=== PATIENT | male | born 1950 | race American Indian/Alaskan Native ===

== ENCOUNTER 2024-05-05 08:48 | Emergency (ER) | payer MEDICARE, BC, SELFPAY ==
[2024-05-05] VITALS (8 sets, daily range): BP systolic 96–113; BP diastolic 56–72; PULSE 81–103; RESP 17–20; TEMP 36.3–36.7; O2SAT 95–99; BMI 27.1
--- NOTE | 2024-05-05 09:03 | XR_ITS ---
Examination: AP chest single view Technique one AP portable sitting chest single view Exam date and time: May 05, 2024 at 0917 hours Comparison March 03, 2016 INDICATIONS: Shortness of breath beginning 10 days ago. FINDINGS: Left base pneumonia, obscuring detail hemidiaphragm Normal heart size Lordotic chest Moderate osteopenia IMPRESSION: Left base pneumonia
--- NOTE | 2024-05-05 09:03 | XR_ITS ---
Examination: Ultrasound-guided paracentesis Abdominal sonogram limited Date and time of exam: May 05, 2024 1415 hours INDICATIONS: Cirrhosis, ascites increasing abdominal distention this week Informed consent provided. A timeout was completed verifying correct patient, procedure, site, positioning, and special adequate movement if applicable. Technique: Multiple sonographic images of the abdomen have been obtained. Appropriate area for paracentesis was marked. Local anesthesia is obtained with 1% lidocaine. Yueh catheter is successfully introduced. Findings: Abdominal sonographic images demonstrate sufficient ascitic fluid for paracentesis. After placing the Yueh catheter, 11,850 cc of fluid were successfully removed. During and after completion of the procedure the patient appear in satisfactory and stable condition with no complications observed. Estimated blood loss 0 cc Impression: Abdominal ascites Successful ultrasound-guided paracentesis as described above
--- NOTE | 2024-05-05 09:04 | PD.EDRME ---
Rapid Medical Screening Exam RME Arrival date/time: Chief Complaint: Shortness of Breath/Dyspnea Time Seen by Provider: 05/05/24 09:50 Vital signs: Vital Signs Temperature 97.4 F 05/05/24 08:59 Pulse Rate 103 H 05/05/24 08:59 Respiratory Rate 20 05/05/24 08:59 Blood Pressure 111/70 05/05/24 08:59 Pulse Oximetry (%) 95 05/05/24 08:59 Oxygen Delivery Method Room Air 05/05/24 08:59
--- NOTE | 2024-05-05 09:35 | PC.NURSE ---
Pt. here from home to room 9, pt. here stating that he has been SOB X 3 weeks and has a distended abdomen with a umbilical hernia, pt. has pitting edema +2 to lower extremities bilateral. Pt. states he has been on Ozempic for over a year and can't eat anything, pt. states he has type 2 diabetes. Pt. states he ambulates with a cane. Pt. states it is the SOB that brought him in to be checked. Pt. states he drinks a lot of water. No s/s of distress at this time.
--- NOTE | 2024-05-05 09:48 | PC.NURSE ---
Pt. states he has never been tapped to remove the fluid from his abdomen.
--- NOTE | 2024-05-05 09:50 | XR_ITS ---
Examination: CT abdomen with intravenous contrast CT pelvis with intravenous contrast 2-D coronal reconstructions 2-D sagittal reconstructions Date and time of exam:May 05, 2024 at 1204 hours INDICATIONS: Generalized abdominal pain and distention today. CTDI: vol (mGy) 8.83 DLP: (mGycm) 602 Technique: Multiple axial sections of the abdomen and pelvis have been obtained. 64 slice high-resolution scanner used. 3 mm axial sections have been obtained, post intravenous injection 60 cc [id number] 2-D sagittal, coronal reconstructions obtained. Low dose protocols were performed. One or more of the following dose reduction techniques were used; automated exposure control, adjustment of the mA and/or KV according to patient size, use of iterative reconstruction technique. Findings: Pneumonia right base with small right pleural effusion Pneumonia left base Cirrhosis, liver nodular in contour with massive ascites Gallstones Distended gallbladder Splenomegaly Common hepatic duct at least 8 mm No pancreatic mass Normal adrenal glands No renal or ureteral calculi Normal appendix No bowel obstruction 3 cm fluid containing umbilical hernia Colonic diverticulosis Minimal thickening of the urinary bladder wall Transverse prostate dimension 3.8 cm Severe osteopenia Chronic osteoporotic compression L5 L2 T12, retropulsion of the compressed T12 vertebral body at least 4 mm IMPRESSION: Bibasilar pneumonia Cirrhosis Massive ascites Cholelithiasis, distended gallbladder with biliary tract dilatation, recommend hepatobiliary sonography follow-up 3 cm fluid containing umbilical hernia Cystitis pattern Severe osteopenia, significant compression T12 vertebral body with retropulsion of this vertebral body at least 4 mm, consider elective MRI lumbar spine follow-up to assess for compression of the thoracic cord at the T12 level
--- NOTE | 2024-05-05 09:55 | EDNOTE_ITS ---
ED General RME/HPI General Chief complaint: Shortness of Breath/Dyspnea Stated complaint: SOB; SWOLLEN BELLY X 1 WK; REDUCED LIVER FUNCT Time Seen by Provider: 05/05/24 09:50 Arrival date/time: 05/05/24 08:48 RME / HPI RME / HPI narrative: [facility] complaint: 05/05/24 08:48 shortness of breath and abdominal distention x3 weeks - history of alcohol abuse, quit 1 year ago. HPI: Patient is a 74-year-old male presents emergency department complaints of shortness of breath and abdominal distention patient reports abdominal distention is ongoing for the last 3 weeks patient does report history of alcohol abuse last used 1 year ago. 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 They study in [place] Family history: Denies SCD, stroke or cancers. Related Data Allergies Allergy/AdvReac Type Severity Reaction Status Date / Time No Known Allergies Allergy Verified 05/05/24 08:50 Review of Systems Review of Systems Narrative Review of Systems: GENERAL: Denies fevers/chills or diaphoresis. HEENT: Denies headache or visual/hearing changes. Denies nasal discharge. NEURO: Denies unusual weakness or difficulty speaking. CARDIO: Denies chest pain or palpitations. PULM: Denies SOB, coughing, or wheezing. GI: Denies abdominal pain, N/V/C/D. Reports having BMs URO: Denies burning/itching/pain/urinary changes. PILATES COORDINATOR: Denies menstrual changes, hot flashes. MSK/EXT/SKIN: Denies joint/skeletal/muscle pain, issues/changes in upper or lower extremities, itchiness, or superficial pain. PSYCH: Cooperative, pleasant mood & affect. The rest of the review of systems is otherwise negative. Course Quality Measures none Orders Category Date Time Status CT Screening NOW Care 05/05/24 09:50 Active Electronics Installer NOW Care 05/05/24 09:03 Active EKG (ED ONLY) *Do not use* NOW Care 05/05/24 09:03 Completed Oral Hydration Q1HR Care 05/05/24 14:[address] abdomen pelvis w con Stat Exams 05/05/24 09:50 Completed EKG (ED Only) Stat Exams 05/05/24 09:03 Ordered US paracentesis abd w/image Stat Exams 05/05/24 09:03 Completed XR chest 1V portable Stat Exams 05/05/24 09:03 Completed Albumin, Peritoneal Fluid Routine Lab 05/05/24 16:31 Results Body Fld Cult w [place] & Gram St Routine Lab 05/05/24 16:31 Received CBC Stat Lab 05/05/24 09:46 Completed Comprehensive Metabolic Panel Stat Lab 05/05/24 09:46 Completed Glucose,Peritoneal Fluid Routine Lab 05/05/24 16:31 Results Hepatitis Acute Panel Stat Lab 05/05/24 09:46 Received LDH,Peritoneal Fluid Routine Lab 05/05/24 16:31 Results Lipase Stat Lab 05/05/24 09:46 Completed Mag [Magnesium] Stat Lab 05/05/24 09:46 Completed Partial Thromboplastin Time Stat Lab 05/05/24 09:46 Completed Path Review Blood Smear Stat Lab 05/05/24 09:46 Completed Peritoneal Cell Cnt/Diff Routine Lab 05/05/24 16:31 Results Protein Total,Peritoneal Fluid Routine Lab 05/05/24 16:31 Results Prothrombin Time with INR Stat Lab 05/05/24 09:46 Completed Troponin I Stat Lab 05/05/24 09:46 Completed Albumin Human 25% Ivpb [Albuminar-25 Ivpb] Med 05/05/24 14:33 Discontinued 12.5 gm in 50 ml IV X1 Albumin Human 25% Ivpb [Albuminar-25 Ivpb] Med 05/05/24 14:36 Discontinued 25 gm in 100 ml IV X1 Albumin Human 25% Ivpb [Albuminar-25 Ivpb] Med 05/05/24 17:44 Active 25 gm in 100 ml IV X1 Lidocaine 1% Pf 30 ml [Xylocaine 1% Pf 30 ml] Med 05/05/24 12:36 Discontinued 30 ml .ROUTE .STK-MED ONE Phytonadione Inj [Vitamin K Inj] Med 05/05/24 14:36 Discontinued 1 mg SC X1 ONE Sodium Chloride 0.9% 500 ml [Ns] 500 ml Med 05/05/24 17:43 Active IV 999 mls/hr cefTRIAXone/D5w 1gm IV premix [Rocephin/D5w 1gm IV Med 05/05/24 14:32 Discontinued premix] 50 ml IV X1 Reevaluation(s) Reevaluation #1: 3:30 PM : s/p paracentesis , per patient he had 11 bottles of fluid taken out. Pending official para report. Abdomen much soft and SOB has now resolved. Will send peritoneal fluid for analysis. Vital Signs Vital signs: Vital Signs Temperature 97.4 F 05/05/24 08:59 Pulse Rate 103 H 05/05/24 08:59 Respiratory Rate 20 05/05/24 08:59 Blood Pressure 111/70 05/05/24 08:59 Pulse Oximetry (%) 95 05/05/24 08:59 Oxygen Delivery Method Room Air 05/05/24 08:59 [facility] Patient data External records reviewed:: [facility] previous records Clinical information provided by:: patient Social determinants that could affect healthcare access:: none Patient has the following chronic illnesses:: Alochol use d/o T2 DM How is presenting disease/condition affected by chronic disease/condition?: c aused by Evaluation data The following diagnostics were reviewed and interpreted by me:: lab results, radiology exam(s) and EKG tracing(s) Lab and/or radiology exams considered but not ordered:: arterial flow liver CT Interpretation Summary: SOB likely due to severe ascites in the setting of cirrhosis Patient is s/p paracentesis with >10 bottles out. SOB has resolved. Medications Medications considered but not ordered:: Dilaudid for pain Medication administrations:: Medication Administration History Sodium Chloride (Ns) 500 mls @ 999 mls/hr IV .Q31M ONE Stop: 05/05/24 18:13 Albumin Human (Albuminar-25 Ivpb) 25 gm in 100 mls @ 100 mls/hr IV X1 ONE Stop: 05/05/24 18:43 Discontinued Medications Ceftriaxone Sodium/Dextrose (Rocephin/D5w 1gm Iv Premix) 50 mls @ 100 mls/hr IV X1 ONE Stop: 05/05/24 15:01 Last Infusion: 05/05/24 16:45 Dose: Infused Documented By: Admin: 05/05/24 16:15 Dose: 100 mls/hr Documented By: ED Albumin Human (Albuminar-25 Ivpb) 12.5 gm in 50 mls @ 50 mls/hr IV X1 ONE Stop: 05/05/24 14:35 Last Admin: 05/05/24 16:30 Dose: Not Given Documented By: ED Non-Admin Reason: Duplicate Medication on eMAR Albumin Human (Albuminar-25 Ivpb) 25 gm in 100 mls @ 100 mls/hr IV X1 ONE Stop: 05/05/24 15:35 Last Admin: 05/05/24 17:22 Dose: 100 mls/hr Documented By: ED Lidocaine HCl (Lidocaine Inj Pf 1% 30 Ml Vial) Confirm Administered Dose 30 ml .ROUTE .STK-MED ONE Stop: 05/05/24 12:37 Last Admin: 05/05/24 16:12 Dose: Not Given Documented By: ED Non-Admin Reason: Held for Procedure Phytonadione (Phytonadione Inj 1 Mg/0.5 Ml Syr) 1 mg SC X1 ONE Stop: 05/05/24 14:37 Last Admin: 05/05/24 16:22 Dose: 1 mg Documented By: ED Co-signed By: YANETH continue Consultations Consultation(s) initiated? (list below): No Consultation #1 (Physician, Specialty, Details): None Diagnosis Differential Diagnosis ED Complaint MDM: Diverticulitis, SBO Most likely diagnosis given after review of the tests above:: SOB likely due to severe ascites in the setting of cirrhosis Patient is s/p paracentesis with >10 bottles out. SOB has resolved. Admission Indicated Admission indicated?: not indicated Explain why admission is indicated or not indicated:: Can follow up outpatient with GI/hepatology for further monitoring and evaluation Pt has quit alcohol. Last drink was >1 year ago. Admission Request Was there a request for admission?: No Disposition Plan Disposition Plan: Discharge Discharge Attestation Discharge Attestation: The patient and all family members were given an opportunity to ask questions and understood the discharge instructions. Discharge instructions specifically effects, indications for sooner follow up or return to the emergency department, and the expected course of current diagnosis. Patient condition: Stable Medical Decision Making MDM Narrative MDM Narrative: Patient is a 74 yo M with known history of alcohol use disorder. No history of diagnosed liver cirrhosis. Presented with SOB 2/2 abdominal distension. Found to have ascites, s/p paracentesis. Pending fluid analysis results before discharge. Diagnosis: CT abdo showed liver cirrhosis and severe ascites. SOB likely due to severe ascites in the setting of cirrhosis. Patient is s/p paracentesis with >10 bottles out. SOB has resolved. He was given IV albumin 25mg x2 to prevent PICD (paracentesis induced circulatory dysfunction) and 500cc IVF for BP 90/50s Plan: Can request admission if BP continues to drop post paracentesis, hyponatremia noted on labs too but mentation is at baseline AOx4. Pending final peritoneal fluid results. Can discharge once GS back. Recommend follow up outpatient with GI/hepatology for further monitoring and evaluation. He has quit alcohol, last drink was >1 year ago. Differential Diagnosis Differential Diagnosis: Diverticulitis, SBO Lab Data 05/05/24 09:46 05/05/24 09:46 Labs: Lab Results 05/05/24 05/05/24 Range/Units 09:46 16:31 WBC 5.7 (3.8-10.6) Thou/mm3 RBC 3.66 L (4.50-5.90) Miln/mm3 Hgb 12.2 L (13.5-16.0) g/dL Hct 35.8 L (41.0-53.0) % MCV 98 (80-100) fL MCH 33.3 (25.0-35.0) pg MCHC 34.1 (31.0-37.0) g/dl RDW Std Deviation 50.4 H (35.1-43.9) fL Plt Count 37 L (140-440) Thou/mm3 Neut % (Auto) 39 (37-80) % Lymph % (Auto) 18 (10-50) % Howard % (Auto) 42 H (0-12) % Eos % (Auto) 0 (0-10) % Baso % (Auto) 1 (0-2.5) % Neut # (Auto) 2.2 (1.8-7.7) Thou/mm3 Lymph # (Auto) 1.0 (1.0-4.8) Thou/mm3 Howard # (Auto) 2.4 H (0.0-0.8) Thou/mm3 Eos # (Auto) 0.0 (0.0-0.5) Thou/mm3 Baso # (Auto) 0.0 (0.0-0.2) Thou/mm3 Immature Gran # (Auto) 0.03 H (0.00-0.00) Thou/mm3 Absolute Nucleated RBC 0.00 (0.00-0.00) Thou/mm3 Immature Gran % 1 H (0-0) % Nucleated RBC % 0 (0) /100 WBC Smear Path Review Sent to Pathologist PT 15.1 H (9.0-12.2) Seconds INR 1.4 H (0.9-1.3) APTT 36.3 H (22.0-36.0) Seconds Sodium 129 L (136-145) mMol/L Potassium 4.0 (3.4-5.1) mMol/L Chloride 98 (98-107) mMol/L Carbon Dioxide 22.0 (20.0-31.0) mMol/L Anion Gap 9 (7-16) BUN 16 (9-23) mg/dL Creatinine 1.1 (0.6-1.3) mg/dL Estim Creat Clear Calc 55.9 L (>60) mL/min eGFR > 60 (60 - ) See Note BUN/Creatinine Ratio 15 (12-20) Ratio Glucose 116 H (74-106) mg/dL Calculated Osmolality 261 L (275-295) Calcium 8.3 (8.3-10.6) mg/dL Corrected Calcium 9.4 (8.5-10.1) mg/dL Magnesium 2.1 (1.6-2.6) mg/dL Total Bilirubin 4.3 H (0.3-1.2) mg/dL AST 61 H (0-34) U/L ALT 48 (10-49) U/L Alkaline Phosphatase 170 H (46-116) U/L Troponin I < 0.020 (0.0-0.045) ng/mL Total Protein 7.7 (5.7-8.2) gm/dL Albumin 2.6 L (3.4-4.8) gm/dL Globulin 5.1 H (2.3-3.5) gm/dL Albumin/Globulin Ratio 0.5 L (1.2-2.2) Lipase 38 (12-53) U/L Peritoneal Color Yellow Peritoneal Appearance Clear Peritoneal WBC 225 /cmm Peritoneal RBC 45 /cmm Periton Polynucl WBCs 9 % Periton Mononucl WBCs 91 % Misc Test Result Platelets confirmed Discharge Plan Plan Patient Disposition: HOME (Self Care) Patient condition on transfer: Stable Prescriptions/Referrals Referrals: Giancarlo Schwab MD [Primary Care Provider] - In 1 week Problem List Clinical Impression: Cirrhosis, Abdominal ascites Patient/Caregiver Discharge Instructions Education Materials: Paracentesis Dc Print Language: Indonesian Stand Alone Forms: Jes Award Info., Patient Portal Info Letter
[2024-05-05 10:01] LABS: Basophils % (Auto) 1 % (0-2.5); Eosinophils % (Auto) 0 % (0-10); Hematocrit 35.8 % (41.0-53.0); Hemoglobin 12.2 g/dL (13.5-16.0); Immature Granulocytes % (Auto) 1 % (0-0); Immature Granulocytes Auto 0.03 Thou/mm3 (0.00-0.00); Lymphocytes % (Auto) 18 % (10-50); Mean Corpuscular HGB Conc 34.1 g/dl (31.0-37.0); Mean Corpuscular Hemoglobin 33.3 pg (25.0-35.0); Mean Corpuscular Volume 98 fL (80-100); Monocytes # (Auto) 2.4 Thou/mm3 (0.0-0.8); Monocytes % (Auto) 42 % (0-12); Neutrophils # (Auto) 2.2 Thou/mm3 (1.8-7.7); Neutrophils % (Auto) 39 % (37-80); Nucleated Red Blood Cell % 0 /100 WBC (0); RDW Standard Deviation 50.4 fL (35.1-43.9); Red Blood Count 3.66 Miln/mm3 (4.50-5.90); White Blood Count 5.7 Thou/mm3 (3.8-10.6)
--- NOTE | 2024-05-05 10:05 | PC.NURSE ---
Pt. states he fell coming into ER, pt. states his left leg didn't make the curb, pt. states he doesn't feel hurt anywhere and denies loss of LOC.
[2024-05-05 10:12] LABS: Platelet Count 37 Thou/mm3 (140-440)
[2024-05-05 10:14] LABS: INR 1.4 (0.9-1.3); Partial Thromboplastin Time 36.3 Seconds (22.0-36.0); Prothrombin Time 15.1 Seconds (9.0-12.2)
[2024-05-05 10:15] LABS: Alanine Aminotransferase 48 U/L (10-49); Albumin, Serum 2.6 gm/dL (3.4-4.8); Albumin/Globulin Ratio 0.5 (1.2-2.2); Alkaline Phosphatase 170 U/L (46-116); Anion Gap 9 (7-16); Aspartate Amino Transferase 61 U/L (0-34); BUN/Creatinine Ratio 15 Ratio (12-20); Bilirubin,Total 4.3 mg/dL (0.3-1.2); Blood Urea Nitrogen 16 mg/dL (9-23); Calcium 8.3 mg/dL (8.3-10.6); Calcium (Corrected) 9.4 mg/dL (8.5-10.1); Chloride 98 mMol/L (98-107); Creatinine (Component) 1.1 mg/dL (0.6-1.3); Estimated Creatinine Clearance 55.9 mL/min (>60); Globulin 5.1 gm/dL (2.3-3.5); Glucose 116 mg/dL (74-106); Lipase 38 U/L (12-53); Magnesium 2.1 mg/dL (1.6-2.6); Osmolality,Calculated 261 (275-295); Sodium 129 mMol/L (136-145); Total Protein 7.7 gm/dL (5.7-8.2); Troponin I < 0.020 ng/mL (0.0-0.045); eGFR > 60 See Note
[2024-05-05 10:31] LABS: Path Review Blood Smear Sent to Pathologist; Slide Review Platelets confirmed
--- NOTE | 2024-05-05 13:45 | PC.NURSE ---
Pt. states he feels much better after getting the fluid drained off his abdomen, pt. states he thinks they filled 11 bottles.
[2024-05-05] MEDS: cefTRIAXone/D5w 1gm IV premix 50 ML IV (16:15)
[2024-05-05] MEDS: PHYTONADIONE INJ 1 MG/0.5 ML SYR SC (16:22)
[2024-05-05 16:56] LABS: Peritoneal Fluid WBC 225 /cmm
[2024-05-05 17:06] LABS: Peritoneal Fluid Appearance Clear; Peritoneal Fluid Color Yellow
[2024-05-05 17:07] LABS: Peritoneal Fluid Mononuclear 91 %; Peritoneal Fluid Polynuclear 9 %; RBC,Peritoneal Fluid 45 /cmm
[2024-05-05] MEDS: ALBUMIN HUMAN 25% IVPB 25 GM/100 ML BTL IV ×2 (17:22→18:56)
[2024-05-05] MEDS: SODIUM CHLORIDE 0.9% 500 ML 500 ML 999 ML IV (18:04)
[2024-05-05 18:08] LABS: Albumin, Peritoneal Fluid < 1.0 gm/dL; Glucose,Peritoneal Fluid 102 mg/dL; LDH,Peritoneal Fluid 37 IU/L; Protein Total,Peritoneal Fluid 2 g/dL
--- NOTE | 2024-05-05 18:18 | PD.EDADDENDU ---
Emergency Room Addendum Addendum Narrative: 1800: Care assumed from Dr. Su, attending Dr. Trevino, the previous shift emergency physician. Past medical, surgical, social and family history reviewed. Vitals and home medications reviewed. Results and treatment plan discussed. I will assume the care of the patient at this time and will follow the patient, pending re-evaluation and final disposition. Please refer to the emergency department record for history and examination from initial visit. Patient's blood pressure has improved to 110/57. Upon discussion with the patient, he is requesting to go home. Return precautions given. Patient verbalized understanding.
[2024-05-05 19:27] LABS: Hepatitis A Antibody IgM Non Reactive (Non React); Hepatitis B Core Antibody IgM Non Reactive (Non React); Hepatitis B Surface Antigen Non Reactive (Non React); Hepatitis C Antibody Non Reactive (Non React)
== END 2024-05-05 20:15 | disposition home or self-care (01) ==
PROVIDERS: Nurse Practitioner Primary Care; Student in an Organized Health Care Education/Training Program; Emergency Provider Emergency Medicine; PCP Family Medicine
DX: K74.60 Unspecified cirrhosis of liver (principal); R18.8 Other ascites
CPT/HCPCS: 49083; 36415; 71045; 74177; 80053; 80074; 82042; 82945; 83615; 83690; 83735; 84157; 84484; 85025; 85610; 85730; 87070; 87075; 87205; 89051; 93005; 96365; 96366; 96367; 96372; 99285; A4649; C1729; J0696; J3430; J7040; P9047; Q9967

== ENCOUNTER → 2024-05-19 | Outpatient (CLI) | payer MEDICARE, BC, SELFPAY ==
--- NOTE | 2024-05-19 11:00 | XR_ITS ---
Examination: Ultrasound-guided paracentesis Abdominal sonogram limited Date and time of exam: May 19, 2024 1451 hours INDICATIONS: Cirrhosis, increasing ascites and abdominal distention this week Informed consent provided. A timeout was completed verifying correct patient, procedure, site, positioning, and special adequate movement if applicable. Technique: Multiple sonographic images of the abdomen have been obtained. Appropriate area for paracentesis was marked. Local anesthesia is obtained with 1% lidocaine. Yueh catheter is successfully introduced. Findings: Abdominal sonographic images demonstrate sufficient ascitic fluid for paracentesis. After placing the Yueh catheter, 9240 cc of fluid were successfully removed. During and after completion of the procedure the patient appear in satisfactory and stable condition with no complications observed. Estimated blood loss 0 cc Impression: Abdominal ascites Successful ultrasound-guided paracentesis as described above
[2024-05-19 12:47] LABS: INR 1.2 (0.9-1.3); Partial Thromboplastin Time 35.8 Seconds (22.0-36.0); Prothrombin Time 13.3 Seconds (9.0-12.2)
[2024-05-19 13:59] LABS: Basophils % (Auto) 1 % (0-2.5); Eosinophils % (Auto) 0 % (0-10); Hematocrit 35.6 % (41.0-53.0); Hemoglobin 12.4 g/dL (13.5-16.0); Immature Granulocytes % (Auto) 0 % (0-0); Immature Granulocytes Auto 0.01 Thou/mm3 (0.00-0.00); Lymphocytes # (Auto) 1.1 Thou/mm3 (1.0-4.8); Lymphocytes % (Auto) 24 % (10-50); Mean Corpuscular HGB Conc 34.8 g/dl (31.0-37.0); Mean Corpuscular Volume 98 fL (80-100); Monocytes # (Auto) 1.9 Thou/mm3 (0.0-0.8); Monocytes % (Auto) 40 % (0-12); Neutrophils # (Auto) 1.6 Thou/mm3 (1.8-7.7); Neutrophils % (Auto) 34 % (37-80); Nucleated Red Blood Cell % 0 /100 WBC (0); RDW Standard Deviation 51.3 fL (35.1-43.9); Red Blood Count 3.65 Miln/mm3 (4.50-5.90); White Blood Count 4.7 Thou/mm3 (3.8-10.6)
[2024-05-19 14:11] LABS: Platelet Count 40 Thou/mm3 (140-440)
[2024-05-19 15:16] LABS: Slide Review Platelets confirmed
[2024-05-19] MEDS: ALBUMIN HUMAN 25% IVPB 25 GM/100 ML BTL IV (15:50)
--- NOTE | 2024-05-19 15:52 | PC.NURSE ---
patient post paracenthesia, 1 bottle of albumin 25% 25gm/100ml ordered. Iv started, infusion started.
--- NOTE | 2024-05-19 16:21 | PC.NURSE ---
albumin infusion completed no allergic reaction noted, iv removed, patient discharged home
== END | disposition home or self-care (01) ==
PROVIDERS: PCP Family Medicine; Referring Provider Family Medicine; Visit Provider Family Medicine
DX: K70.31 Alcoholic cirrhosis of liver with ascites (principal)
CPT/HCPCS: 49083; 36415; 85025; 85610; 85730; C1729; P9047

== ENCOUNTER → 2024-06-02 | Outpatient (CLI) | payer MEDICARE, BC, SELFPAY ==
[2024-06-02 13:25] LABS: Basophils % (Auto) 1 % (0-2.5); Eosinophils % (Auto) 0 % (0-10); Hematocrit 35.3 % (41.0-53.0); Hemoglobin 12.5 g/dL (13.5-16.0); Immature Granulocytes % (Auto) 0 % (0-0); Immature Granulocytes Auto 0.02 Thou/mm3 (0.00-0.00); Lymphocytes # (Auto) 1.1 Thou/mm3 (1.0-4.8); Lymphocytes % (Auto) 25 % (10-50); Mean Corpuscular HGB Conc 35.4 g/dl (31.0-37.0); Mean Corpuscular Hemoglobin 33.8 pg (25.0-35.0); Mean Corpuscular Volume 95 fL (80-100); Monocytes # (Auto) 1.7 Thou/mm3 (0.0-0.8); Monocytes % (Auto) 38 % (0-12); Neutrophils # (Auto) 1.6 Thou/mm3 (1.8-7.7); Neutrophils % (Auto) 36 % (37-80); Nucleated Red Blood Cell % 0 /100 WBC (0); RDW Standard Deviation 49.9 fL (35.1-43.9); White Blood Count 4.5 Thou/mm3 (3.8-10.6)
[2024-06-02 13:29] LABS: INR 1.3 (0.9-1.3); Partial Thromboplastin Time 37.7 Seconds (22.0-36.0); Prothrombin Time 13.5 Seconds (9.0-12.2)
[2024-06-02 14:12] LABS: Platelet Count 38 Thou/mm3 (140-440)
[2024-06-02 14:13] LABS: Slide Review Platelets confirmed
== END | disposition home or self-care (01) ==
PROVIDERS: PCP Family Medicine; Referring Provider Family Medicine; Visit Provider Family Medicine
DX: D69.6 Thrombocytopenia, unspecified (principal); Z53.8 Procedure and treatment not carried out for other reasons
CPT/HCPCS: 36415; 85025; 85610; 85730

== ENCOUNTER 2024-06-03 07:17 | Emergency (ER) | payer MEDICARE, BC, SELFPAY ==
[2024-06-03] VITALS (7 sets, daily range): BP systolic 85–99; BP diastolic 54–66; PULSE 80–104; RESP 15–20; TEMP 36.4–37; O2SAT 95–100; BMI 22.8
--- NOTE | 2024-06-03 07:34 | XR_ITS ---
Examination: Ultrasound-guided paracentesis Abdominal sonogram limited Date and time of exam: June 03, 2024 1221 hours INDICATIONS: Cirrhosis, increasing ascites and abdominal distention this week Informed consent provided. A timeout was completed verifying correct patient, procedure, site, positioning, and special adequate movement if applicable. Technique: Multiple sonographic images of the abdomen have been obtained. Appropriate area for paracentesis was marked. Local anesthesia is obtained with 1% lidocaine. Yueh catheter is successfully introduced. Findings: Abdominal sonographic images demonstrate sufficient ascitic fluid for paracentesis. After placing the Yueh catheter, 8400 cc of fluid were successfully removed. During and after completion of the procedure the patient appear in satisfactory and stable condition with no complications observed. Estimated blood loss 0 cc Impression: Abdominal ascites Successful ultrasound-guided paracentesis as described above
--- NOTE | 2024-06-03 07:39 | XR_ITS ---
Examination: AP lateral chest 2 views TECHNIQUE: Sitting AP lateral chest 2 views INDICATIONS: Onset chest pain today FINDINGS: Comparison May 05, 2024 Persistent left base pneumonia Mild right base pneumonia Normal heart size Reduced inspiratory effort IMPRESSION: Bibasilar pneumonia
--- NOTE | 2024-06-03 07:39 | EKG_ITS ---
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
--- NOTE | 2024-06-03 07:40 | PD.EDRME ---
Rapid Medical Screening Exam [facility] Arrival date/time: 06/03/24 07:17 74-year-old male with abdominal ascites requiring paracentesis request paracentesis today patient also reports shortness of breath patient noted to be hypotensive Chief Complaint: Abdominal Pain Vital signs: Vital Signs Temperature 97.6 F 06/03/24 07:39 Pulse Rate 104 H 06/03/24 07:39 Respiratory Rate 20 06/03/24 07:39 Blood Pressure 85/56 L 06/03/24 07:39 Pulse Oximetry (%) 100 06/03/24 07:39 Oxygen Delivery Method Room Air 06/03/24 07:39
[2024-06-03 08:27] LABS: Basophils % (Auto) 1 % (0-2.5); Eosinophils % (Auto) 0 % (0-10); Hemoglobin 12.2 g/dL (13.5-16.0); Immature Granulocytes % (Auto) 1 % (0-0); Immature Granulocytes Auto 0.03 Thou/mm3 (0.00-0.00); Lymphocytes # (Auto) 1.4 Thou/mm3 (1.0-4.8); Lymphocytes % (Auto) 22 % (10-50); Mean Corpuscular HGB Conc 34.9 g/dl (31.0-37.0); Mean Corpuscular Hemoglobin 33.2 pg (25.0-35.0); Mean Corpuscular Volume 95 fL (80-100); Monocytes # (Auto) 2.5 Thou/mm3 (0.0-0.8); Monocytes % (Auto) 40 % (0-12); Neutrophils # (Auto) 2.3 Thou/mm3 (1.8-7.7); Neutrophils % (Auto) 37 % (37-80); Nucleated Red Blood Cell % 0 /100 WBC (0); RDW Standard Deviation 50.4 fL (35.1-43.9); Red Blood Count 3.67 Miln/mm3 (4.50-5.90); White Blood Count 6.3 Thou/mm3 (3.8-10.6)
[2024-06-03 08:36] LABS: Platelet Count 42 Thou/mm3 (140-440)
[2024-06-03 08:40] LABS: B-Type Natriuretic Peptide 52 pg/mL (0-100)
[2024-06-03] MEDS: ALBUMIN HUMAN 25% IVPB 12.5 GM/50 ML BTL IV ×5 (08:41→18:01)
[2024-06-03 08:42] LABS: Alanine Aminotransferase 31 U/L (10-49); Albumin, Serum 2.5 gm/dL (3.4-4.8); Albumin/Globulin Ratio 0.5 (1.2-2.2); Alkaline Phosphatase 210 U/L (46-116); Anion Gap 8 (7-16); Aspartate Amino Transferase 41 U/L (0-34); BUN/Creatinine Ratio 21 Ratio (12-20); Bilirubin,Total 2.6 mg/dL (0.3-1.2); Blood Urea Nitrogen 36 mg/dL (9-23); Calcium 8.6 mg/dL (8.3-10.6); Calcium (Corrected) 9.8 mg/dL (8.5-10.1); Carbon Dioxide 24.2 mMol/L (20.0-31.0); Chloride 101 mMol/L (98-107); Creatinine (Component) 1.7 mg/dL (0.6-1.3); Estimated Creatinine Clearance 36.1 mL/min (>60); Globulin 4.7 gm/dL (2.3-3.5); Glucose 127 mg/dL (74-106); Osmolality,Calculated 276 (275-295); Potassium 3.8 mMol/L (3.4-5.1); Sodium 133 mMol/L (136-145); Total Protein 7.2 gm/dL (5.7-8.2); Troponin I < 0.002 ng/mL (0.0-0.045); eGFR 42 See Note
[2024-06-03 08:43] LABS: INR 1.3 (0.9-1.3); Partial Thromboplastin Time 37.9 Seconds (22.0-36.0); Prothrombin Time 13.6 Seconds (9.0-12.2)
--- NOTE | 2024-06-03 08:50 | EDNOTE_ITS ---
ED Abdominal Pain RME/HPI General Chief Complaint: Abdominal Pain Stated complaint: NEEDS PARACENTISIS; MISSED YESTERDAY DUE TO LOW PT Time seen by provider: 06/03/24 08:06 Arrival date/time: 06/03/24 07:17 RME / HPI RME / HPI narrative: DR. MITTAL MAIN ED EVALUATION: 74 year old male with past medical history significant for cirrhosis and diabetes dellitus type 2 presents to the Emergency Department with complaint of abdominal ascites requesting paracentesis today. Associated symptoms include shortness of breath. Patient noted to be hypotensive, 89/63. Related Data Allergies Allergy/AdvReac Type Severity Reaction Status Date / Time No Known Allergies Allergy Verified 06/03/24 07:19 Review of Systems Review of Systems Systems Reviewed: All systems reviewed, normal except as documented Narrative Review of Systems: GEN: No fever, no chills, no weight loss EYES: No discharge, no visual changes, no pain HEENT: No ear pain, no congestion, no sore throat PULM: + shortness of breath, no cough, no congestion CV: No chest pain, no dyspnea on exertion, no palpitations GI: No nausea, no vomiting, no diarrhea, + abdominal ascites, no constipation : No frequency, no urgency and no dysuria MUSC/SKEL: No joint pain, no back pain SKIN: No rash PSYCH: No hallucinations, no depression HEME/LYMPH: No easy bleeding or bruising tendencies NEURO: No weakness, no headache Past Medical History Past Medical History GASTROINTESTINAL: Positive Cirrhosis ENDOCRINE: Positive Diabetes Mellitus Type 2 Social History SMOKING STATUS: Never smoker SUBSTANCE USE: does not use ALCOHOL: Never ED Exam Narrative Physical exam: GENERAL APPEARANCE: alert and oriented x 4, well-developed, well-nourished, no acute distress VITALS: All vitals were reviewed and the pulse ox is 97% on room air, which is normal according to my interpretation. HEENT: Normocephalic, atraumatic; pupils equal, round, reactive to light; EOMI; mucous membranes pink, moist; oropharynx clear NECK: Supple LUNGS: CTABL; no wheezes, no rales, no rhonchi HEART: Regular rate, regular rhythm; normal S1, S2; no murmurs ABDOMEN: non distended; normal BS; soft, no tenderness, no guarding, no rebound; no masses, no organomegaly, no hernia BACK: no CVA tenderness EXTREMITIES: atraumatic; no edema NEUROLOGIC: awake; alert and oriented x4; cranial nerves II-XII grossly intact; no focal sensory or motor deficits PSYCHIATRIC: appropriate mood and affect SKIN: warm, dry, normal color; no rashes Course Quality Measures none Orders Category Date Time Status EKG (ED ONLY) *Do not use* NOW Care 06/03/24 07:39 Completed EKG (ED Only) Stat Exams 06/03/24 07:39 Draft US paracentesis abd w/image Stat Exams 06/03/24 07:34 Completed XR chest 2V Stat Exams 06/03/24 07:39 Completed B-Type Natriuretic Peptide Stat Lab 06/03/24 08:01 Completed CBC Stat Lab 06/03/24 08:01 Completed Comprehensive Metabolic Panel Stat Lab 06/03/24 08:01 Completed Drug Screen,Urine Stat Lab 06/03/24 18:04 Ordered Magnesium Stat Lab 06/03/24 08:01 Completed Partial Thromboplastin Time Stat Lab 06/03/24 08:01 Completed Prothrombin Time with INR Stat Lab 06/03/24 08:01 Completed Troponin I Stat Lab 06/03/24 08:01 Completed Urinalysis Stat Lab 06/03/24 18:04 Ordered Albumin Human 25% Ivpb [Albuminar-25 Ivpb] Med 06/03/24 17:54 Discontinued 12.5 gm in 50 ml IV .STK-MED Albumin Human 25% Ivpb [Albuminar-25 Ivpb] Med 06/03/24 08:19 Discontinued 12.5 gm in 50 ml IV X1 Albumin Human 25% Ivpb [Albuminar-25 Ivpb] Med 06/03/24 08:19 Discontinued 12.5 gm in 50 ml IV X1 Albumin Human 25% Ivpb [Albuminar-25 Ivpb] Med 06/03/24 15:25 Discontinued 12.5 gm in 50 ml IV X1 Albumin Human 25% Ivpb [Albuminar-25 Ivpb] Med 06/03/24 15:25 Discontinued 12.5 gm in 50 ml IV X1 Albumin Human 25% Ivpb [Albuminar-25 Ivpb] Med 06/03/24 15:25 Discontinued 12.5 gm in 50 ml IV X1 Lidocaine 1% Pf 30 ml [Xylocaine 1% Pf 30 ml] Med 06/03/24 12:22 Discontinued 30 ml .ROUTE .STK-MED ONE Vital Signs Vital signs: Vital Signs Temperature 97.6 F 06/03/24 07:39 Pulse Rate 104 H 06/03/24 07:39 Respiratory Rate 20 06/03/24 07:39 Blood Pressure 85/56 L 06/03/24 07:39 Pulse Oximetry (%) 100 06/03/24 07:39 Oxygen Delivery Method Room Air 06/03/24 07:39 Abdominal Pain MDM MDM Narrative MDM Narrative:: I, Irma Rivera, any scribing for and in the presence of Dr. Mittal. Patient data External records reviewed:: [facility] previous records (Reviewed last ED visit dated 05/23/24, discharged with the following: Alcoholic cirrhosis of liver without ascites) Clinical information provided by:: patient Social determinants that could affect healthcare access:: none Patient has the following chronic illnesses:: Cirrhosis and diabetes dellitus type 2 How is presenting disease/condition affected by chronic disease/condition?: exacerbated by Evaluation data The following diagnostics were reviewed and interpreted by me:: lab results, radiology exam(s) and EKG tracing(s) (EKG#1: EKG at 0744 hours. Interpreted by me: sinus rhythm, rate 99, low QRS voltage in precordial leads) Lab and/or radiology exams considered but not ordered:: none Interpretation Summary: Procedure(s): XR chest 2V Accession Number(s): [id number] cc: Wayne (GABRIEL),Jarrod RIOS; Aditya Wrorell MD; Giancarlo Schwab MD~ Examination: AP lateral chest 2 views TECHNIQUE: Sitting AP lateral chest 2 views INDICATIONS: Onset chest pain today FINDINGS: Comparison May 05, 2024 Persistent left base pneumonia Mild right base pneumonia Normal heart size Reduced inspiratory effort IMPRESSION: Bibasilar pneumonia Dictated By: Aditya Worrell MD Procedure(s): US paracentesis abd w/image Accession Number(s): [id number] cc: Wayne (GABRIEL),Jarrod RIOS; Aditya Worrell MD; Giancarlo Schwab MD~ Examination: Ultrasound-guided paracentesis Abdominal sonogram limited Date and time of exam: June 03, 2024 1221 hours INDICATIONS: Cirrhosis, increasing ascites and abdominal distention this week Informed consent provided. A timeout was completed verifying correct patient, procedure, site, positioning, and special adequate movement if applicable. Technique: Multiple sonographic images of the abdomen have been obtained. Appropriate area for paracentesis was marked. Local anesthesia is obtained with 1% lidocaine. Yueh catheter is successfully introduced. Findings: Abdominal sonographic images demonstrate sufficient ascitic fluid for paracentesis. After placing the Yueh catheter, 8400 cc of fluid were successfully removed. During and after completion of the procedure the patient appear in satisfactory and stable condition with no complications observed. Estimated blood loss 0 cc Impression: Abdominal ascites Successful ultrasound-guided paracentesis as described above Dictated By: Aditya Worrell MD Medications / Prescriptions Medications or Prescriptions considered but not ordered:: none Medication administrations:: Medication Administration History Discontinued Medications Albumin Human (Albuminar-25 Ivpb) 12.5 gm in 50 mls @ 50 mls/hr IV X1 ONE Stop: 06/03/24 09:18 Last Infusion: 06/03/24 09:40 Dose: Infused Documented By: Admin: 06/03/24 08:41 Dose: 50 mls/hr Documented By: VG Albumin Human (Albuminar-25 Ivpb) 12.5 gm in 50 mls @ 50 mls/hr IV X1 ONE Stop: 06/03/24 09:18 Last Infusion: 06/03/24 17:59 Dose: Infused Documented By: Admin: 06/03/24 16:09 Dose: 50 mls/hr Documented By: VG Albumin Human (Albuminar-25 Ivpb) 12.5 gm in 50 mls @ 50 mls/hr IV X1 ONE Stop: 06/03/24 16:24 Last Infusion: 06/03/24 17:58 Dose: Infused Documented By: Admin: 06/03/24 16:09 Dose: 50 mls/hr Documented By: VG Albumin Human (Albuminar-25 Ivpb) 12.5 gm in 50 mls @ 50 mls/hr IV X1 ONE Stop: 06/03/24 16:24 Last Admin: 06/03/24 17:56 Dose: 50 mls/hr Documented By: VG Albumin Human (Albuminar-25 Ivpb) 12.5 gm in 50 mls @ 50 mls/hr IV X1 ONE Stop: 06/03/24 16:24 Last Admin: 06/03/24 18:01 Dose: 50 mls/hr Documented By: VG Albumin Human (Albuminar-25 Ivpb) Confirm Administered Dose 12.5 gm in 50 mls @ ud IV .STK-MED ONE Stop: 06/03/24 17:55 Lidocaine HCl (Lidocaine Inj Pf 1% 30 Ml Vial) Confirm Administered Dose 30 ml .ROUTE .STK-MED ONE Stop: 06/03/24 12:23 see above Consultations Consultation(s) initiated? (list below): No Diagnosis Differential diagnosis abdominal pain: abdominal pain and other (abdominal ascites, edema, CHF ) Most likely diagnosis given after review of the tests above:: Status post abdominal paracentesis Abdominal ascites Admission Indicated Admission indicated?: not indicated Admission Request Was there a request for admission?: No Disposition Plan Disposition Plan: Discharge Discharge Attestation Discharge Attestation: The patient and all family members were given an opportunity to ask questions and understood the discharge instructions. Discharge instructions specifically effects, indications for sooner follow up or return to the emergency department, and the expected course of current diagnosis. Patient condition: Stable Discharge Plan Plan Patient Disposition: HOME (Self Care) Prescriptions/Referrals Referrals: Giancarlo Schwab MD [Primary Care Provider] - In 1 week Problem List Clinical Impression: Status post abdominal paracentesis, Abdominal ascites Patient/Caregiver Discharge Instructions Education Materials: Paracentesis, ED Ascites Print Language: Palestinian Stand Alone Forms: Jes Award Info., Patient Portal Info Letter
[2024-06-03 09:59] LABS: Slide Review Platelets confirmed
[2024-06-03 18:57] LABS: Collection Type, Urine Clean Catch; Squamous Epithelial Cell,Urine 0 /hpf (0-5)
[2024-06-03 19:08] LABS: Bacteria,Urine Rare; Bilirubin,Urine Negative (Negative); Blood,Urine Negative (Negative); Clarity,Urine Clear (Clear/Hazy); Color,Urine Yellow (Lt Yel-Yel); Glucose, Urine Negative (Negative); Ketones,Urine Negative (Negative); Leukocyte Esterase,Urine Negative (Negative); Nitrite,Urine Negative (Negative); PH,Urine 5.5 (5.0-7.0); Protein,Urine Trace (Neg - Trace); RBC,Urine 5 /hpf (0-3); Specific Gravity,Urine 1.021 (1.001-1.035); Urobilinogen,Urine Negative mg/dL (0.0-1.0); WBC,Urine 3 /hpf (0-5)
[2024-06-03 19:17] LABS: Amphetamine/Methamp Scrn,U Negative (Negative); Barbiturate Screen,Urine Negative (Negative); Benzodiazepines Screen,Urine Negative (Negative); Benzoylecgonine Screen, Ur Negative (Negative); Fentanyl Screen,Urine Negative (Negative); Opiate Screen,Urine Negative (Negative); THC Screen,Urine Negative (Negative)
== END 2024-06-03 19:55 | disposition home or self-care (01) ==
PROVIDERS: Nurse Practitioner Primary Care; Emergency Provider Emergency Medicine; PCP Family Medicine
DX: K74.60 Unspecified cirrhosis of liver (principal); R18.8 Other ascites; J18.9 Pneumonia, unspecified organism
CPT/HCPCS: 49083; 36415; 71046; 80053; 80307; 81001; 83735; 83880; 84484; 85025; 85610; 85730; 93005; 96365; 96367; 96368; 99284; C1729; P9047

== ENCOUNTER → 2024-06-20 | Outpatient (CLI) | payer MEDICARE, BC, SELFPAY ==
[2024-06-19 14:40] LABS: Basophils % (Auto) 1 % (0-2.5); Eosinophils % (Auto) 0 % (0-10); Hematocrit 33.9 % (41.0-53.0); Hemoglobin 12.1 g/dL (13.5-16.0); Immature Granulocytes % (Auto) 0 % (0-0); Immature Granulocytes Auto 0.01 Thou/mm3 (0.00-0.00); Lymphocytes # (Auto) 1.2 Thou/mm3 (1.0-4.8); Lymphocytes % (Auto) 26 % (10-50); Mean Corpuscular HGB Conc 35.7 g/dl (31.0-37.0); Mean Corpuscular Hemoglobin 33.6 pg (25.0-35.0); Mean Corpuscular Volume 94 fL (80-100); Monocytes # (Auto) 1.7 Thou/mm3 (0.0-0.8); Monocytes % (Auto) 37 % (0-12); Neutrophils # (Auto) 1.6 Thou/mm3 (1.8-7.7); Neutrophils % (Auto) 36 % (37-80); Nucleated Red Blood Cell % 0 /100 WBC (0); White Blood Count 4.6 Thou/mm3 (3.8-10.6)
[2024-06-19 14:46] LABS: INR 1.2 (0.9-1.3); Partial Thromboplastin Time 35.4 Seconds (22.0-36.0); Prothrombin Time 13.1 Seconds (9.0-12.2)
[2024-06-19 14:51] LABS: Ammonia 20 uMol/L (11-32)
[2024-06-19 14:52] LABS: Alanine Aminotransferase 24 U/L (10-49); Albumin, Serum 2.6 gm/dL (3.4-4.8); Albumin/Globulin Ratio 0.6 (1.2-2.2); Alkaline Phosphatase 196 U/L (46-116); Anion Gap 11 (7-16); Aspartate Amino Transferase 39 U/L (0-34); BUN/Creatinine Ratio 21 Ratio (12-20); Bilirubin,Total 1.9 mg/dL (0.3-1.2); Blood Urea Nitrogen 30 mg/dL (9-23); Calcium 8.5 mg/dL (8.3-10.6); Calcium (Corrected) 9.6 mg/dL (8.5-10.1); Carbon Dioxide 23.5 mMol/L (20.0-31.0); Chloride 96 mMol/L (98-107); Creatinine (Component) 1.4 mg/dL (0.6-1.3); Globulin 4.4 gm/dL (2.3-3.5); Glucose 115 mg/dL (74-106); Osmolality,Calculated 268 (275-295); Potassium 3.6 mMol/L (3.4-5.1); Sodium 130 mMol/L (136-145); eGFR 53 See Note
[2024-06-19 15:05] LABS: Platelet Count 42 Thou/mm3 (140-440); Slide Review Platelets confirmed
--- NOTE | 2024-06-20 10:30 | XR_ITS ---
Examination: Ultrasound-guided paracentesis Abdominal sonogram limited Date and time of exam: 06/20/2024, 11:14 AM Indication: Ascites Informed consent provided. A timeout was completed verifying correct patient, procedure, site, positioning, and special adequate movement if applicable. Technique: Multiple sonographic images of the abdomen have been obtained. Appropriate area for paracentesis was marked. Local anesthesia is obtained with 1% lidocaine. Yueh catheter is successfully introduced. Findings: Abdominal sonographic images demonstrate sufficient ascitic fluid for paracentesis. After placing the Yueh catheter, 8800 cc of fluid were successfully removed. During and after completion of the procedure the patient appear in satisfactory and stable condition with no complications observed. Estimated blood loss 0 cc Impression: Abdominal ascites Successful ultrasound-guided paracentesis as described above
[2024-06-20] MEDS: ALBUMIN HUMAN 25% IVPB 25 GM/100 ML BTL IV ×2 (12:32→13:23)
--- NOTE | 2024-06-20 14:35 | PC.NURSE ---
patient arrived to labor standards director for albumin. md order albumin x2. patient tolerated well. patient had no complaints. patient alert and oriented GCS of 15.
== END | disposition home or self-care (01) ==
PROVIDERS: PCP Family Medicine; Referring Provider Family Medicine; Visit Provider Family Medicine
DX: K70.31 Alcoholic cirrhosis of liver with ascites (principal); Z01.812 Encounter for preprocedural laboratory examination
CPT/HCPCS: 49083; 36415; 80053; 82140; 85025; 85610; 85730; C1729; P9047

== ENCOUNTER 2024-07-02 09:04 | Inpatient (IN) | payer MEDICARE, BC, SELFPAY ==
[2024-07-02] VITALS (58 sets, daily range): BP systolic 55–105; BP diastolic 29–68; PULSE 79–120; RESP 8–36; TEMP 33.7–36.1; O2SAT 58–100; BMI 25.8
--- NOTE | 2024-07-02 09:23 | EKG_ITS ---
[facility] Test Date: 2024-07-02 Pat Name: JEANINE PEREZ Department: Room: - Gender: Male Hand Therapist: : 1950 Requested By: Amy Duarte Order Number: [id number] Reading MD: Amy Duarte Measurements Intervals [place] Rate: 11 P: CO: QRS: -56 QRSD: 75 T: 49 QT: 428 QTc: 185 Interpretive Statements SINUS RHYTHM WITH HIGH GRADE AV BLOCK LEFT AXIS DEVIATION [QRS AXIS < -30] LOW QRS VOLTAGE [QRS DEFLECTION < 0.5/1.0 mV IN LIMB/CHEST LEADS] ANTERIOR MYOCARDIAL INFARCTION , PROBABLY OLD [40+ ms Q WAVE AND/OR ST/T ABNORMALITY IN V3/V4] CRITICAL TEST RESULT Compared to ECG 06/03/2024 07:44:48 Left-axis deviation now present Myocardial infarct finding still present /store/S0/[id number]/ecg/[id number].pdf
[2024-07-02] MEDS: SODIUM CHLORIDE 0.9% 1000 ML 1,000 ML 999 ML IV ×3 (09:32→12:11)
[2024-07-02 09:44] LABS: Basophils # (Auto) 0.1 Thou/mm3 (0.0-0.2); Basophils % (Auto) 0 % (0-2.5); Eosinophils % (Auto) 0 % (0-10); Hematocrit 32.9 % (41.0-53.0); Hemoglobin 11.3 g/dL (13.5-16.0); Immature Granulocytes % (Auto) 6 % (0-0); Immature Granulocytes Auto 1.75 Thou/mm3 (0.00-0.00); Lymphocytes # (Auto) 2.3 Thou/mm3 (1.0-4.8); Lymphocytes % (Auto) 8 % (10-50); Mean Corpuscular HGB Conc 34.3 g/dl (31.0-37.0); Mean Corpuscular Hemoglobin 32.8 pg (25.0-35.0); Mean Corpuscular Volume 95 fL (80-100); Monocytes # (Auto) 5.5 Thou/mm3 (0.0-0.8); Monocytes % (Auto) 18 % (0-12); Neutrophils # (Auto) 20.9 Thou/mm3 (1.8-7.7); Neutrophils % (Auto) 68 % (37-80); Nucleated Red Blood Cell # 0.09 Thou/mm3 (0.00-0.00); Nucleated Red Blood Cell % 0 /100 WBC (0); RDW Standard Deviation 50.7 fL (35.1-43.9); Red Blood Count 3.45 Miln/mm3 (4.50-5.90); White Blood Count 30.6 Thou/mm3 (3.8-10.6)
[2024-07-02 09:54] LABS: INR 2.3 (0.9-1.3); Partial Thromboplastin Time 49.1 Seconds (22.0-36.0); Prothrombin Time 23.4 Seconds (9.0-12.2)
--- NOTE | 2024-07-02 10:01 | PC.NURSE ---
Patient presents to ED via ambulance with c/o all over weakness and unable to get out of bed this am. Patient states he fell x4 days ago and noted bruising to forehead left side of hip. Patient lives in apartment with alone and family does visit, uses cane for ambulation assist. Patient also states abdomen is swollen and will need paracentesis and usually gets it done about every 2weeks or as needed. Patient is alert and responsive. Call light is within reach.
[2024-07-02 10:04] LABS: B-Type Natriuretic Peptide 81 pg/mL (0-100)
--- NOTE | 2024-07-02 10:09 | EDNOTE_ITS ---
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 clinically significant deterioration in the patient?s condition required the highest level of my preparedness to intervene urgently. The services I provided to this patient were to treat and/or prevent clinically significant deterioration. Services included the following: chart data review, reviewing nursing notes and/or old charts, documentation time, consumer experience consultant collaboration regarding findings and treatment options, medication orders and management, direct patient care, vital sign assessments and ordering, interpreting and reviewing diagnostic studies and lab tests. Aggregate critical care time includes only time during which I was engaged in work directly related to the patient?s care, as described above, whether at bedside or elsewhere in the Emergency Department. It did not include time spent performing other reported procedures or the services of residents, students, nurses or physician assistants. Discharge Plan Plan Patient Disposition: Admit Acute Care w/in Hospital Problem List Clinical Impression: Septic shock
[2024-07-02 10:15] LABS: Alanine Aminotransferase 687 U/L (10-49); Albumin, Serum 2.1 gm/dL (3.4-4.8); Albumin/Globulin Ratio 0.6 (1.2-2.2); Alkaline Phosphatase 990 U/L (46-116); Anion Gap 19 (7-16); BUN/Creatinine Ratio 17 Ratio (12-20); Bilirubin,Total 12.8 mg/dL (0.3-1.2); Blood Urea Nitrogen 85 mg/dL (9-23); Calcium 7.5 mg/dL (8.3-10.6); Chloride 92 mMol/L (98-107); Estimated Creatinine Clearance 12.3 mL/min (>60); Globulin 3.7 gm/dL (2.3-3.5); Lipase 16 U/L (12-53); Magnesium 2.7 mg/dL (1.6-2.6); Osmolality,Calculated 272 (275-295); Sodium 125 mMol/L (136-145); Total Protein 5.8 gm/dL (5.7-8.2); Troponin I < 0.020 ng/mL (0.0-0.045); eGFR 12 See Note
[2024-07-02 10:19] LABS: Platelet Count 73 Thou/mm3 (140-440)
[2024-07-02] MEDS: PIPER/TAZO 3.375 GM PREMIX 3.375 GM/50 ML BAG IV ×2 (10:38→18:28)
[2024-07-02] MEDS: ALBUMIN HUMAN 25% IVPB 12.5 GM/50 ML BTL IV ×2 (10:49→11:31)
[2024-07-02 10:55] LABS: Aspartate Amino Transferase 1159 U/L (0-34)
[2024-07-02 11:04] LABS: Carbon Dioxide 14.4 mMol/L (20.0-31.0); Potassium 6.3 mMol/L (3.4-5.1)
[2024-07-02 11:06] LABS: Glucose 14 mg/dL (74-106)
[2024-07-02 11:06] LABS: Lactate (Lactic Acid) 5.6 mMol/L (0.4-2.0)
[2024-07-02] MEDS: DEXTROSE 50%-WATER INJ 50 ML SYRINGE IV ×3 (11:10→16:55)
[2024-07-02 11:16] LABS: Path Review Blood Smear Sent to Pathologist; Slide Review Platelets confirmed
[2024-07-02 11:32] LABS: Procalcitonin 5.19 ng/ml (0.0-0.49)
[2024-07-02] MEDS: ONDANSETRON INJ 2 MG/ML INJ 2 ML 4 MG IV (11:32)
[2024-07-02] MEDS: PANTOPRAZOLE INJ 40 MG VIAL 80 MG IV (11:33)
[2024-07-02] MEDS: NS IV (11:51)
[2024-07-02] MEDS: VANCOMYCIN IV (11:51)
[2024-07-02] MEDS: CALCIUM GLUC/NS 1000MG IVPB 1,000 MG/50 ML BAG 50 MG IV ×2 (12:10→18:28)
[2024-07-02] MEDS: PANTOPRAZOLE/NS 80MG IV PREMIX 80 MG/100 ML BAG 10 MG IV (12:12)
[2024-07-02 12:32] LABS: Collection Type, Urine Clean Catch; Squamous Epithelial Cell,Urine 0 /hpf (0-5)
--- NOTE | 2024-07-02 12:37 | XR_ITS ---
EXAMINATION: XR chest 1V portable ORDERING PROVIDER: Amy Mittal MD HISTORY: SOB TECHNIQUE: Single portable AP radiograph of the chest. COMPARISON: None. FINDINGS: Uncoiled aorta. Hypoinflated lungs with increased interstitial markings. Bibasilar opacities. No pneumothorax. No large pleural effusion. Diffuse osteopenia. Overlying monitoring leads. Increased lucency under the right hemidiaphragm. IMPRESSION: 1. Increased lucency under the right hemidiaphragm. This may be due to patient pneumoperitoneum or interposed loop of bowel. Acute abdominal series is available as clinically indicated. 2. Hypoinflated lungs with bronchovascular crowding. 3. Bibasilar opacities may be infectious or atelectatic. 4. Positive fluid balance versus third spacing. Discussed with Nurse Pate of the emergency room at 1:24 PM 07/02/2024. He expressed understanding.
[2024-07-02] MEDS: Norepinephrine/D5W 8mg/250ml 8 MG/250 ML BAG 7.017 MG IV (12:50)
[2024-07-02 12:57] LABS: Ammonia 144 uMol/L (11-32)
[2024-07-02 13:01] LABS: Amorphous Crystals,Urine Present (Absent); Bacteria,Urine Rare; Bilirubin,Urine 1+ (Negative); Blood,Urine Trace (Negative); Clarity,Urine Turbid (Clear/Hazy); Color,Urine Drk-Yellow (Lt Yel-Yel); Glucose, Urine Negative (Negative); Hyaline Casts,Urine 1 /hpf (0-1); Ketones,Urine Negative (Negative); Leukocyte Esterase,Urine Negative (Negative); Nitrite,Urine Negative (Negative); PH,Urine 5.5 (5.0-7.0); Protein,Urine 1+ (Neg - Trace); RBC,Urine 5 /hpf (0-3); Urobilinogen,Urine Negative mg/dL (0.0-1.0); WBC,Urine 5 /hpf (0-5)
--- NOTE | 2024-07-02 13:27 | XR_ITS ---
Examination: AP chest single view Technique: AP portable upright chest single view Exam date and time: July 02, 2024 12:34 PM Comparison July 02, 2024 Indications: Post central line placement Findings: Right internal jugular central line tip right atrium Mild prominence cardiac contour Prominent vascular congestion Atelectasis right lower lobe Impression: Heart failure pattern Consider superimposed bilateral perihilar pneumonia
[2024-07-02 13:44] LABS: Reflex Lactate? Y
[2024-07-02 14:04] LABS: Lactic Acid, 3 HR 7.4 mMol/L (0.4-2.0)
[2024-07-02] MEDS: Norepinephrine/D5W 8mg/250ml 8 MG/250 ML BAG 67.359 MG IV (14:35)
[2024-07-02 15:41] LABS: Bilirubin,Direct 8.2 mg/dL (0.0-0.3); Bilirubin,Total 11.9 mg/dL (0.3-1.2)
--- NOTE | 2024-07-02 15:46 | XR_ITS ---
Examination: CT abdomen and pelvis without contrast. Coronal 3-D reconstructions. Sagittal 2-D reconstructions. Date and time of exam:July 10 1603 hrs. Indications: Onset sepsis today CTDI: vol (mGy): 7.83 DLP: (mGycm): 537 Technique: Axial images of the abdomen have been obtained, 3 mm slice thickness Intravenous contrast material has not been administered. Low dose protocols were performed. One or more of the following dose reduction techniques were used; automated exposure control, adjustment of the mA and/or KV according to patient size, use of iterative reconstruction technique. Findings: Bibasilar pneumonia, significant right base Minimal right pleural disease Fluid distended esophagus Cirrhosis, marked ascites Cholelithiasis, gallbladder wall appears thickened No pancreatic mass No hydronephrosis Colonic diverticulosis Urinary bladder shows wall thickening, contracted around a Gamble catheter Impression: Bibasilar pneumonia Wall thickening distal esophagus, consider reflux esophagitis Cirrhosis Marked ascites Cholelithiasis, suspicious for cholecystitis, consider HIDA scan follow-up
[2024-07-02] MEDS: Norepinephrine/NS 16mg/250ml 16 MG/250 ML BAG 70.165 MG IV (16:20)
--- NOTE | 2024-07-02 16:34 | XR_ITS ---
Examination: Abdomen sonogram, Limited Date and time of exam: July 02, 2024 1952 hrs. Indications: Cirrhosis, diagnosis 20 years ago with elevated liver function tests on laboratory examination this week Technique: Real-time nichols scale transabdominal sonographic images of the upper abdomen obtained. Findings: Gallstones Gallbladder wall 0.4 cm no edema Common bile duct 0.6 Pancreatic head 2.8 cm Liver 15.3 cm lobular contour no focal liver lesions Normal hepatopedal portal venous flow Patent IVC Moderate ascites Impression: Cholelithiasis Cirrhosis Moderate ascites
[2024-07-02 16:49] LABS: Basophils # (Auto) 0.1 Thou/mm3 (0.0-0.2); Basophils % (Auto) 0 % (0-2.5); Eosinophils % (Auto) 0 % (0-10); Hemoglobin 11.1 g/dL (13.5-16.0); Immature Granulocytes % (Auto) 7 % (0-0); Immature Granulocytes Auto 3.86 Thou/mm3 (0.00-0.00); Lymphocytes # (Auto) 3.1 Thou/mm3 (1.0-4.8); Lymphocytes % (Auto) 5 % (10-50); Mean Corpuscular HGB Conc 33.6 g/dl (31.0-37.0); Mean Corpuscular Hemoglobin 33.2 pg (25.0-35.0); Mean Corpuscular Volume 99 fL (80-100); Monocytes # (Auto) 7.7 Thou/mm3 (0.0-0.8); Monocytes % (Auto) 14 % (0-12); Neutrophils # (Auto) 42.1 Thou/mm3 (1.8-7.7); Neutrophils % (Auto) 74 % (37-80); Nucleated Red Blood Cell # 0.13 Thou/mm3 (0.00-0.00); Nucleated Red Blood Cell % 0 /100 WBC (0); Platelet Count 81 Thou/mm3 (140-440); RDW Standard Deviation 54.5 fL (35.1-43.9); Red Blood Count 3.34 Miln/mm3 (4.50-5.90)
[2024-07-02] MEDS: ALBUTEROL RT 2.5 MG/0.5 ML NEBU 10 MG INH (16:50)
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
[2024-07-02 17:01] LABS: Base Excess -20 (-3-3); HCO3 7 mEq/L (20-26); Inspired O2, VO2 Liters 8 L/min; Inspired Oxygen, FIO2 21 %; O2 Saturation 94 % (91-98); PCO2 18 mmHg (32.0-48.0); PO2 86 mmHg (83-108)
--- NOTE | 2024-07-02 17:01 | PC.RT ---
Pt is unable to produce any sputum at this time
[2024-07-02 17:13] LABS: Puncture Site Right Brachial
[2024-07-02 17:16] LABS: Allen Test Not Performed; pH, Arterial 7.17 (7.35-7.45)
[2024-07-02 17:22] LABS: White Blood Count 56.9 Thou/mm3 (3.8-10.6)
[2024-07-02 17:40] LABS: Alanine Aminotransferase 613 U/L (10-49); Albumin, Serum 2.2 gm/dL (3.4-4.8); Albumin/Globulin Ratio 0.6 (1.2-2.2); Alkaline Phosphatase 935 U/L (46-116); Anion Gap 22 (7-16); Aspartate Amino Transferase 960 U/L (0-34); BUN/Creatinine Ratio 17 Ratio (12-20); Bilirubin,Total 13.2 mg/dL (0.3-1.2); Blood Urea Nitrogen 76 mg/dL (9-23); Calcium 7.1 mg/dL (8.3-10.6); Calcium (Corrected) 8.5 mg/dL (8.5-10.1); Chloride 96 mMol/L (98-107); Creatinine (Component) 4.6 mg/dL (0.6-1.3); Estimated Creatinine Clearance 13.4 mL/min (>60); Globulin 3.4 gm/dL (2.3-3.5); Glucose 70 mg/dL (74-106); Osmolality,Calculated 277 (275-295); Sodium 128 mMol/L (136-145); Total Protein 5.6 gm/dL (5.7-8.2); eGFR 13 See Note
[2024-07-02 17:44] LABS: Carbon Dioxide < 10.0 mMol/L (20.0-31.0); Potassium 6.4 mMol/L (3.4-5.1)
--- NOTE | 2024-07-02 18:02 | PC.RT ---
pt transfered to icu without complications
[2024-07-02 18:03] LABS: Hepatitis A Antibody IgM Non Reactive (Non React); Hepatitis B Core Antibody IgM Non Reactive (Non React); Hepatitis B Surface Antigen Non Reactive (Non React); Hepatitis C Antibody Non Reactive (Non React)
[2024-07-02] MEDS: VASOPRESSIN IN NS IVPB 20 UNIT/100 ML BAG 9 UNIT IV (18:13)
[2024-07-02] MEDS: SODIUM BICARB INJ 8.4% 1 mEq/ML VIAL 50 ML 50 MEQ IV ×4 (18:18→22:52)
--- NOTE | 2024-07-02 18:20 | PC.NURSE ---
Received report from Esther ELDRIDGE from ED. Pt had norepi gtt at 1.02 mcg/kg/min with MAP at 57. Pt alert and oriented, denies any pain but did state that he is SOB. Pt positioned higher in bed to help breathing. Dr. Terrazas on phone with Charge nurse Mary Lou with multiple new orders to be given to patient STAT. Currently cardiac exercise specialist shows Sinus tachy at 112, Spo2 92% on 2L. Pt was given medications immediately. Pt remains calm and comfortable in bed. Call light within reach.
[2024-07-02] MEDS: ALBUMIN HUMAN 25% IVPB 25 GM/100 ML BTL IV ×2 (18:23→23:34)
[2024-07-02] MEDS: HYDROCORTISONE SOD SUCC INJ 100 MG VIAL IV (18:32)
[2024-07-02 18:36] LABS: Base Excess, Venous -14 (-3-3); O2 Saturation, Venous 72 % (96-97); PCO2, Venous 25 mmHg (36-56); PO2, Venous 46 mmHg (15-58); pH, Venous 7.27 (7.33-7.66)
[2024-07-02] MEDS: LACTULOSE SYRUP 20 GM/30 ML UDC 30 GM PO ×2 (18:38→22:09)
[2024-07-02] MEDS: SOD POLYSTYRENE SULFON SUSP 15 GM/60 ML BTL 30 GM PO ×2 (18:38)
[2024-07-02 18:45] LABS: Base Excess -16 (-3-3); HCO3 9 mEq/L (20-26); Inspired Oxygen, FIO2 36 %; O2 Saturation 91 % (91-98); PCO2 21 mmHg (32.0-48.0); PO2 70 mmHg (83-108); pH, Arterial 7.26 (7.35-7.45)
[2024-07-02 18:46] LABS: Lactate (Lactic Acid) 12.5 mMol/L (0.4-2.0)
[2024-07-02 18:47] LABS: Allen Test Performed/OK; Puncture Site Left Radial
[2024-07-02 19:01] LABS: Band Neutrophils (Manual) 4 % (0-6); Lymphocytes (Manual) 2 % (20-44); Metamyelocytes (Manual) 2 % (0-0); Monocytes (Manual) 14 % (2-9); Myelocytes (Manual) 3 % (0-0); Neutrophils (Manual) 75 % (50-70)
[2024-07-02 19:02] LABS: Toxic Granulation 1+; Toxic Vacuolation 2+
[2024-07-02] MEDS: DEXTROSE 50%-WATER INJ 50 ML SYRINGE 25 ML IV ×2 (19:20→22:09)
[2024-07-02] MEDS: DEXTROSE 10%-WATER 500 ML 60 ML IV (19:40)
[2024-07-02] MEDS: Norepinephrine/NS 16mg/250ml 16 MG/250 ML BAG 75.779 MG IV (19:43)
[2024-07-02 21:35] LABS: Reflex Lactate? Y
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
[2024-07-02 21:42] LABS: Lactic Acid, 3 HR 13.7 mMol/L (0.4-2.0)
--- NOTE | 2024-07-02 21:48 | XR_ITS ---
EXAMINATION: XR chest 1V post procedure ORDERING PROVIDER: Laura Will MD HISTORY: RIGHT IJ DIALYSIS LINE PLACMENT TECHNIQUE: Single portable AP radiograph of the chest. COMPARISON: 07/02/2024, CT abdomen pelvis, chest radiographs. FINDINGS: Lines and Tubes: Interval exchange of right neck vascular catheter with tip projecting over the expected region of the right atrium. Overlying monitoring leads. Lungs: Hypoinflated with bronchovascular crowding. Bibasilar consolidations. Diffuse increased interstitial thickening. Pleura: Small pleural effusion. No pneumothorax. Cardiomediastinal Silhouette: Moderate cardiomegaly. Calcifications aortic arch. Soft Tissues/Bones: Unchanged. IMPRESSION: 1. Lines and tubes as above. 2. Bibasilar consolidations. 3. Positive fluid balance versus third spacing.
--- NOTE | 2024-07-02 21:52 | PC.NURSE ---
2100 MD and RN Bedside pt states he is a DNI/DNR. MD confirmed that pt understood that DNR/DNI means we would not do compressions/ push meds if the PTs heart was to stop or put a tube in to breath for him. The pt Stated he understood and absolutly did not want these things done to him.
[2024-07-02 21:54] LABS: Alanine Aminotransferase 537 U/L (10-49); Albumin, Serum 2.4 gm/dL (3.4-4.8); Albumin/Globulin Ratio 0.8 (1.2-2.2); Alkaline Phosphatase 811 U/L (46-116); Anion Gap 25 (7-16); Aspartate Amino Transferase 798 U/L (0-34); BUN/Creatinine Ratio 17 Ratio (12-20); Bilirubin,Total 13.6 mg/dL (0.3-1.2); Blood Urea Nitrogen 77 mg/dL (9-23); Calcium 7.3 mg/dL (8.3-10.6); Calcium (Corrected) 8.6 mg/dL (8.5-10.1); Chloride 96 mMol/L (98-107); Creatinine (Component) 4.6 mg/dL (0.6-1.3); Estimated Creatinine Clearance 13.4 mL/min (>60); Globulin 3.1 gm/dL (2.3-3.5); Glucose 103 mg/dL (74-106); Osmolality,Calculated 285 (275-295); Potassium 5.7 mMol/L (3.4-5.1); Sodium 131 mMol/L (136-145); Total Protein 5.5 gm/dL (5.7-8.2); eGFR 13 See Note
[2024-07-02 22:00] LABS: Carbon Dioxide < 10.0 mMol/L (20.0-31.0)
--- NOTE | 2024-07-02 22:06 | EVENTNT_ITS ---
Documentation for date of: 07/02/24 Event Note Event Note: Discussed medical condition and plan of care with patient who is AAO to name, , place, date, and able to make his own medical decisions, patient stated his wishes to have his code status changed to DNR/DNI, code status was explained in length to patient including not doing chest compressions or intubating patient if his condition deteriorates and his heart stops. Patient's code status was changed in presence of attending Dr. De La Cruz, resident Dr. Murillo and patient's nurse Ruma. Patient also gave consent to placing HD catheter and attempting hemodialysis after explaining his significant electrolyte derrangment and i ncreasing vasopressors requirement. Nephrology was consulted and patient will undergo hemodialysis this evening.
--- NOTE | 2024-07-02 22:08 | ESOP_ITS ---
<Statement entered by Ronna De La Cruz MD - 07/04/24 04:34> I reviewed above note and agree with findings and plans. Procedures Procedure Date / Time 07/02/242207 Central Line Placement Right IJ: Indication(s): other (Needs dialysis catheter ) Informed consent obtained: from patient Time out done, and the following verified: correct patient, side and site, procedure and patient position Patient placed on monitor/pulse ox: Yes Hand Hygiene: alcohol-based hand rub Max Sterile Barrier Techniques used: cap, mask, sterile gown and sterile gloves Central line prep: Povidone-Iodine 1% and sterile drapes applied Ultrasound used for placement: No Central line lumen inserted: triple (tri-flow phasic dialysis catheter) Post procedure: sutured in place, good blood return, all ports aspirated, flushed, capped and sterile dressing applied Post procedure x-ray: tip of catheter in good position and no pneumothorax seen Patient tolerated procedure: well EBL(ml): 5 Complications: none Procedure comment: Pt already had R IJ central line placed, however catheter was replaced with tri- phasic lumen catheter for dialysis.
--- NOTE | 2024-07-02 22:46 | PC.NURSE ---
JAZMYN Hendrix increased Levophed.
[2024-07-02] MEDS: PHYTONADIONE INJ 10 MG/ML AMP SC (22:52)
--- NOTE | 2024-07-02 23:00 | PC.NURSE ---
JAZMYN Hendrix increased Levophed.
[2024-07-02] MEDS: Norepinephrine/NS 16mg/250ml 16 MG/250 ML BAG 168.397 MG IV (23:15)
--- NOTE | 2024-07-02 23:16 | PC.NURSE ---
JAZMYN Hendrix increased Levophed.
--- NOTE | 2024-07-02 23:31 | PC.NURSE ---
Addendum entered by Brittny Landa RN 07/02/24 23:40: Albumin 25% given IVP. Original Note: JAZMYN Hendrix increased Levophed.
[2024-07-02] MEDS: EPINEPHrine in NS 4 MG IVPB 4 MG/250 ML BAG 14.033 MG IV (23:36)
[2024-07-03] VITALS (304 sets, daily range): BP systolic 73–191; BP diastolic 31–153; PULSE 74–126; RESP 12–38; TEMP 35.1–36.7; O2SAT 23–100; BMI 25.8
[2024-07-03] MEDS: HYDROCORTISONE SOD SUCC INJ 100 MG VIAL 50 MG IV ×4 (00:06→18:17)
--- NOTE | 2024-07-03 00:15 | PC.NURSE ---
Merissa steele, RN to hang KAILASH vicente off.
[2024-07-03] MEDS: Norepinephrine/NS 16mg/250ml 16 MG/250 ML BAG 210.496 MG IV ×7 (00:30→08:01)
[2024-07-03 00:54] LABS: Base Excess -7 (-3-3); HCO3 16 mEq/L (20-26); Inspired Oxygen, FIO2 100 %; O2 Saturation 93 % (91-98); PCO2 25 mmHg (32.0-48.0); PO2 66 mmHg (83-108); pH, Arterial 7.42 (7.35-7.45)
[2024-07-03 01:01] LABS: Allen Test Performed/OK; Puncture Site Right Radial
[2024-07-03] MEDS: HEPARIN SOD INJ 1000 UNIT/ML VIAL 10 ML 3000 UNIT INDWELLCAT ×2 (01:01→22:45)
[2024-07-03] MEDS: DEXTROSE 50%-WATER INJ 50 ML SYRINGE IV ×5 (01:07→14:39)
[2024-07-03] MEDS: SODIUM BICARB INJ 8.4% 1 mEq/ML VIAL 50 ML 50 MEQ IV ×3 (03:02→11:26)
[2024-07-03] MEDS: VASOPRESSIN IN NS IVPB 20 UNIT/100 ML BAG 9 UNIT IV ×2 (03:07→14:25)
[2024-07-03] MEDS: DEXTROSE 10%-WATER 500 ML 60 ML IV ×2 (04:26→12:55)
[2024-07-03 04:31] LABS: Base Excess -21 (-3-3); HCO3 8 mEq/L (20-26); Inspired Oxygen, FIO2 100 %; O2 Saturation 89 % (91-98); PCO2 25 mmHg (32.0-48.0); PO2 75 mmHg (83-108)
[2024-07-03 04:33] LABS: Allen Test Performed/OK; Puncture Site Right Radial
[2024-07-03 04:34] LABS: pH, Arterial 7.08 (7.35-7.45)
[2024-07-03] MEDS: Sodium Bicarb Inj 8.4% SYR 50 ML SYRINGE IV ×2 (04:38→08:51)
--- NOTE | 2024-07-03 05:00 | XR_ITS ---
EXAMINATION: XR chest 1V portable ORDERING PROVIDER: Christin Johnson MD HISTORY: Shortness of Breath TECHNIQUE: Single portable AP radiograph of the chest. COMPARISON: 07/02/2024, CT abdomen pelvis, chest radiographs. FINDINGS: Lines and Tubes: Right neck vascular catheter with tip projecting over the expected region of the right atrium. Overlying monitoring leads. Lungs: Hypoinflated with bronchovascular crowding. Bibasilar consolidations. Worsening diffuse increased interstitial markings. Pleura: Increased small bilateral pleural effusions. No pneumothorax. Right lung apex clipped. Cardiomediastinal Silhouette: Unchanged. Soft Tissues/Bones: Unchanged. IMPRESSION: 1. Lines and tubes as above. 2. Bibasilar consolidations. 3. Worsening pulmonary vascular congestion and small bilateral pleural effusions.
[2024-07-03 05:45] LABS: Basophils # (Auto) 0.4 Thou/mm3 (0.0-0.2); Basophils % (Auto) 0 % (0-2.5); Eosinophils # (Auto) 0.1 Thou/mm3 (0.0-0.5); Eosinophils % (Auto) 0 % (0-10); Hematocrit 30.2 % (41.0-53.0); Immature Granulocytes % (Auto) 10 % (0-0); Immature Granulocytes Auto 10.14 Thou/mm3 (0.00-0.00); Lymphocytes # (Auto) 3.7 Thou/mm3 (1.0-4.8); Lymphocytes % (Auto) 4 % (10-50); Mean Corpuscular HGB Conc 33.1 g/dl (31.0-37.0); Mean Corpuscular Hemoglobin 33.8 pg (25.0-35.0); Mean Corpuscular Volume 102 fL (80-100); Monocytes % (Auto) 15 % (0-12); Neutrophils # (Auto) 67.7 Thou/mm3 (1.8-7.7); Neutrophils % (Auto) 70 % (37-80); Nucleated Red Blood Cell # 0.58 Thou/mm3 (0.00-0.00); Nucleated Red Blood Cell % 1 /100 WBC (0); RDW Standard Deviation 57.8 fL (35.1-43.9); Red Blood Count 2.96 Miln/mm3 (4.50-5.90)
[2024-07-03 05:50] LABS: Platelet Count 50 Thou/mm3 (140-440)
[2024-07-03 06:08] LABS: Slide Review Platelets confirmed
[2024-07-03] MEDS: LACTULOSE SYRUP 20 GM/30 ML UDC 30 GM PO ×3 (06:11→21:04)
[2024-07-03] MEDS: ALBUMIN HUMAN 25% IVPB 25 GM/100 ML BTL IV ×5 (06:14→18:17)
[2024-07-03] MEDS: EPINEPHrine in NS 4 MG IVPB 4 MG/250 ML BAG 33.679 MG IV (06:48)
[2024-07-03 06:52] LABS: Alanine Aminotransferase 462 U/L (10-49); Albumin, Serum 2.5 gm/dL (3.4-4.8); Albumin/Globulin Ratio 0.9 (1.2-2.2); Alkaline Phosphatase 642 U/L (46-116); Anion Gap 29 (7-16); Aspartate Amino Transferase 701 U/L (0-34); BUN/Creatinine Ratio 15 Ratio (12-20); Bilirubin,Total 13.3 mg/dL (0.3-1.2); Blood Urea Nitrogen 51 mg/dL (9-23); Calcium 7.2 mg/dL (8.3-10.6); Calcium (Corrected) 8.4 mg/dL (8.5-10.1); Chloride 96 mMol/L (98-107); Cholesterol < 50 mg/dL (132-200); Creatinine (Component) 3.5 mg/dL (0.6-1.3); Estimated Creatinine Clearance 17.6 mL/min (>60); Globulin 2.7 gm/dL (2.3-3.5); Glucose 90 mg/dL (74-106); HDL Cholesterol < 5 mg/dL (40-60); LDL Cholesterol,Calculated 33 mg/dL (0-130); Magnesium 2.3 mg/dL (1.6-2.6); Osmolality,Calculated 283 (275-295); Phosphorous 8.1 mg/dL (2.4-5.1); Potassium 5.4 mMol/L (3.4-5.1); Sodium 135 mMol/L (136-145); Total Protein 5.2 gm/dL (5.7-8.2); Triglycerides 58 mg/dL (30-150); Vancomycin,Random 8.8 mcg/mL; eGFR 18 See Note
[2024-07-03 07:03] LABS: Carbon Dioxide < 10.0 mMol/L (20.0-31.0)
[2024-07-03] MEDS: Sodium Bicarb Inj 8.4% SYR 50 ML SYRINGE 100 ML IV (07:06)
[2024-07-03] MEDS: CALCIUM CHLORIDE 10% INJ 10 ML SYRG IV ×2 (07:14→08:51)
[2024-07-03 08:35] LABS: Reflex Lactate? Y
[2024-07-03] MEDS: RINGERS LACTATED 1000 ML 1,000 ML 999 ML IV (08:50)
[2024-07-03] MEDS: ROCURONIUM INJ 10 MG/ML VIAL 10 ML 50 MG IV (08:54)
[2024-07-03] MEDS: KETAMINE 50 MG/ML VIAL 10 ML 100 MG IVP (08:54)
--- NOTE | 2024-07-03 08:55 | XR_ITS ---
EXAMINATION: XR chest 1V post procedure ORDERING PROVIDER: Abilio Faye MD HISTORY: intubation TECHNIQUE: Single portable AP radiograph of the chest. COMPARISON: 07/03/2024 4:15 AM, portable chest radiograph. FINDINGS: Lines and Tubes: Interval intubation with endotracheal tube tip at the level of the jeremy aimed toward the right mainstem bronchus. Right neck vascular catheter with tip projecting over the expected region of the right atrium. Interval placement of enteric tube with tip projecting below the left hemidiaphragm beyond the [id number]. Overlying monitoring leads. Lungs: Hypoinflated with bronchovascular crowding. Bibasilar consolidations. Worsening diffuse increased interstitial markings. Pleura: Small bilateral pleural effusions. No pneumothorax. Right lung apex clipped. Cardiomediastinal Silhouette: Unchanged. Soft Tissues/Bones: Unchanged. IMPRESSION: 1. Lines and tubes as above. This includes interval intubation with endotracheal tube tip at the level of the jeremy tip aimed toward the right mainstem bronchus. Recommend retraction. 2. Bibasilar consolidations. 3. Worsening pulmonary vascular congestion and small bilateral pleural effusions. Discussed with Dr. Terrazas at 9:47 AM 07/03/2024 via telephone, who expressed understanding.
[2024-07-03 09:10] LABS: INR 2.8 (0.9-1.3); Prothrombin Time 28.9 Seconds (9.0-12.2)
[2024-07-03 09:11] LABS: Partial Thromboplastin Time 76.5 Seconds (22.0-36.0)
[2024-07-03 09:19] LABS: Basophils # (Auto) 0.1 Thou/mm3 (0.0-0.2); Basophils % (Auto) 0 % (0-2.5); Eosinophils # (Auto) 0.1 Thou/mm3 (0.0-0.5); Eosinophils % (Auto) 0 % (0-10); Immature Granulocytes % (Auto) 11 % (0-0); Immature Granulocytes Auto 6.35 Thou/mm3 (0.00-0.00); Lymphocytes % (Auto) 7 % (10-50); Mean Corpuscular HGB Conc 31.4 g/dl (31.0-37.0); Mean Corpuscular Hemoglobin 33.8 pg (25.0-35.0); Mean Corpuscular Volume 108 fL (80-100); Monocytes # (Auto) 8.3 Thou/mm3 (0.0-0.8); Monocytes % (Auto) 14 % (0-12); Neutrophils % (Auto) 69 % (37-80); Nucleated Red Blood Cell # 0.99 Thou/mm3 (0.00-0.00); Nucleated Red Blood Cell % 2 /100 WBC (0); Red Blood Count 1.57 Miln/mm3 (4.50-5.90)
[2024-07-03 09:19] LABS: Base Excess -20 (-3-3); HCO3 11 mEq/L (20-26); Inspired Oxygen, FIO2 100 %; O2 Saturation 99 % (91-98); PCO2 67 mmHg (32.0-48.0); PO2 184 mmHg (83-108)
[2024-07-03 09:22] LABS: Allen Test Not Performed; Puncture Site Arterial Line
[2024-07-03 09:24] LABS: pH, Arterial 6.84 (7.35-7.45)
[2024-07-03] MEDS: Norepinephrine/NS 16mg/250ml 16 MG/250 ML BAG 196.463 MG IV (09:30)
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
[2024-07-03 09:50] LABS: Alanine Aminotransferase 300 U/L (10-49); Albumin, Serum 1.9 gm/dL (3.4-4.8); Albumin/Globulin Ratio 1.3 (1.2-2.2); Alkaline Phosphatase 318 U/L (46-116); Anion Gap 28 (7-16); Aspartate Amino Transferase 563 U/L (0-34); BUN/Creatinine Ratio 15 Ratio (12-20); Bilirubin,Total 7.4 mg/dL (0.3-1.2); Blood Urea Nitrogen 48 mg/dL (9-23); Calcium 9.8 mg/dL (8.3-10.6); Calcium (Corrected) 11.5 mg/dL (8.5-10.1); Chloride 103 mMol/L (98-107); Creatinine (Component) 3.2 mg/dL (0.6-1.3); Estimated Creatinine Clearance 19.2 mL/min (>60); Globulin 1.5 gm/dL (2.3-3.5); Glucose 161 mg/dL (74-106); Osmolality,Calculated 302 (275-295); Sodium 144 mMol/L (136-145); Total Protein 3.4 gm/dL (5.7-8.2); White Blood Count 59.8 Thou/mm3 (3.8-10.6); eGFR 20 See Note
[2024-07-03 09:52] LABS: Carbon Dioxide 12.8 mMol/L (20.0-31.0)
[2024-07-03 09:53] LABS: Hematocrit 16.9 % (41.0-53.0); Hemoglobin 5.3 g/dL (13.5-16.0)
[2024-07-03 09:54] LABS: Platelet Count 34 Thou/mm3 (140-440)
--- NOTE | 2024-07-03 10:18 | PC.NURSE ---
Addendum entered by Brittny Landa RN 07/03/24 10:28: Albumin 25% given for low BP. Original Note: Kari ELDRIDGE went up on Levophed.
[2024-07-03] MEDS: NOREPINEPHRINE INJ 32 MG in SODIUM CHLORIDE 0.9% 500 ML 468 ML 210.496 MG IV ×2 (10:48→14:02)
--- NOTE | 2024-07-03 10:49 | PC.NURSE ---
JAZMYN Pierce increased Epinephine due to low BP.
[2024-07-03 10:56] LABS: Base Excess -15 (-3-3); HCO3 13 mEq/L (20-26); Inspired Oxygen, FIO2 80 %; O2 Saturation 84 % (91-98); PCO2 40 mmHg (32.0-48.0); PO2 62 mmHg (83-108)
[2024-07-03 11:00] LABS: Allen Test Not Performed; Puncture Site Left Femoral; pH, Arterial 7.11 (7.35-7.45)
--- NOTE | 2024-07-03 11:00 | PD.RESPROC ---
Procedures Procedure Date / Time 07/03/24 1100 Paracentesis Indication: Ascites Informed consent obtained: procedure done urgently Time out done, and the following verified: correct patient, side and site, procedure, patient position and implants and/or equipment Procedure: therapeutic paracentesis Location: [facility] Local anesthetic used: lidocaine 1% Amount of anesthesia used (mL): 5 Bedside ultrasound used: yes, Ascites confirmed and location marked Preparation: sterile prep and drape Amount of fluid obtained (mL): 150 Fluid: cloudy, bloody and sent to lab for analysis Size of needle used: 5 EBL(ml): 0 Post procedure exam: other (patient was encephalopathic) Patient tolerated procedure: well and no complications Complications: none Procedure comment: At 08:35 AM procedure was performed. Hands were washed immediately prior to the procedure. Surgical cap, mask, sterile gown and sterile gloves throughout the procedure was used. Procedure performed at bedside, adequate pocket of ascitic fluid identified in left lower quadrant. Patient was in supine position, site of incision was left lower quadrant of the abdomen, area cleaned with chlorhexidine and draped using sterile technique. Local anesthesia with 1% lidocaine injected into the skin and subcutaneous tissue. A needle/catheter was advanced into the peritoneal cavity under ultrasound guidance. Upon entry yellow/bloody fluid was aspirated. Total of 150 mL of ascitic fluid ( cloudy/bloody) was removed . No signs of bleeding. Patient is getting albumin, vitals are closely monitoring. Fluid study was ordered. Procedure was done under direct supervision of attending physician Patient care was discussed with attending physician Dr. Mk Johnson MD PGY-2 I have carefully reviewed this document. Due to imperfections in the voice software, there could be grammatical errors including phonetic/typographic errors. This in no way compromises the medical care the patient is receiving
[2024-07-03] MEDS: EPINEPHrine in NS 4 MG IVPB 4 MG/250 ML BAG 280.661 MG IV (11:03)
[2024-07-03] MEDS: PIPER/TAZO 3.375 GM PREMIX 3.375 GM/50 ML BAG IV (11:04)
[2024-07-03] MEDS: PANTOPRAZOLE INJ 40 MG VIAL IVP (11:04)
[2024-07-03 11:06] LABS: Basophils # (Auto) 0.2 Thou/mm3 (0.0-0.2); Basophils % (Auto) 0 % (0-2.5); Eosinophils # (Auto) 0.1 Thou/mm3 (0.0-0.5); Eosinophils % (Auto) 0 % (0-10); Immature Granulocytes % (Auto) 11 % (0-0); Immature Granulocytes Auto 8.13 Thou/mm3 (0.00-0.00); Lymphocytes # (Auto) 4.2 Thou/mm3 (1.0-4.8); Lymphocytes % (Auto) 6 % (10-50); Mean Corpuscular HGB Conc 32.8 g/dl (31.0-37.0); Mean Corpuscular Hemoglobin 33.7 pg (25.0-35.0); Mean Corpuscular Volume 103 fL (80-100); Monocytes # (Auto) 9.3 Thou/mm3 (0.0-0.8); Monocytes % (Auto) 13 % (0-12); Neutrophils # (Auto) 49.3 Thou/mm3 (1.8-7.7); Neutrophils % (Auto) 69 % (37-80); Nucleated Red Blood Cell # 1.02 Thou/mm3 (0.00-0.00); Nucleated Red Blood Cell % 1 /100 WBC (0); RDW Standard Deviation 58.1 fL (35.1-43.9); Red Blood Count 1.78 Miln/mm3 (4.50-5.90)
[2024-07-03 11:24] LABS: Hematocrit 18.3 % (41.0-53.0); Platelet Count 38 Thou/mm3 (140-440); White Blood Count 71.3 Thou/mm3 (3.8-10.6)
[2024-07-03 11:28] LABS: D-Dimer 3600 ng/mL (<600)
[2024-07-03] MEDS: VANCOMYCIN/NS 1 GM IVPB 200 ML IV (11:29)
[2024-07-03] MEDS: EPINEPHrine Inj 16 MG in SODIUM CHLORIDE 0.9% 250 ML 234 ML 140.331 MG IV ×3 (11:31→15:19)
[2024-07-03 11:52] LABS: Alanine Aminotransferase 459 U/L (10-49); Albumin, Serum 2.9 gm/dL (3.4-4.8); Albumin/Globulin Ratio 1.5 (1.2-2.2); Alkaline Phosphatase 375 U/L (46-116); Anion Gap 26 (7-16); Aspartate Amino Transferase 1066 U/L (0-34); BUN/Creatinine Ratio 16 Ratio (12-20); Bilirubin,Total 9.9 mg/dL (0.3-1.2); Blood Urea Nitrogen 35 mg/dL (9-23); Calcium 8.1 mg/dL (8.3-10.6); Chloride 100 mMol/L (98-107); Creatinine (Component) 2.2 mg/dL (0.6-1.3); Glucose 81 mg/dL (74-106); Osmolality,Calculated 286 (275-295); Potassium 4.1 mMol/L (3.4-5.1); Sodium 140 mMol/L (136-145); Total Protein 4.9 gm/dL (5.7-8.2); eGFR 31 See Note
[2024-07-03 11:54] LABS: Carbon Dioxide 13.8 mMol/L (20.0-31.0)
[2024-07-03 12:03] LABS: Path Review Blood Smear Sent to Pathologist
--- NOTE | 2024-07-03 12:04 | PC.NURSE ---
1st unit of blood started.
[2024-07-03 12:16] LABS: Reflex Lactate? Y
--- NOTE | 2024-07-03 12:35 | PC.NURSE ---
1st unit of blood done, 2nd unit started.
--- NOTE | 2024-07-03 12:42 | PD.RESPRO ---
Documentation for date of: 07/03/24 Subjective Subjective Interval history: 74-year-old male with past medical history of diabetes on Ozempic, alcoholic cirrhosis presents to ED with chief complaints of generalized weakness. Over the past couple of days patient comes experiencing progressive weakness, to the point of being unable to get out of bed. The weakness has worsened over the last 3 days, prompting him to call to EMS for transport to ED for further evaluation. Patient also stated that for the last couple of days he was not having any appetite, he was not eating well, while he was getting his Ozempic shot. In ED he was found to be hypoxic, was respiratory rate of 31 breaths/min. He was placed on BiPAP for respiratory support. Upon presentation patient was found to be hypoglycemic with glucose of 14, further labs revealed severe leukocytosis, anemia, hyponatremia, severe hyperkalemia with potassium of 6.3, anion gap metabolic acidosis with anion gap of 19, bicarb of 14.4. Lactic acidosis of 7.4,. Severe transaminitis AST of 1159 and ALT 687, ALP 990, T. bili of 12.8 ammonia of 144, procalcitonin 5.19. Chest x-ray revealed bibasilar pneumonia On presentation patient was hypotensive with BP of 55/29, MAP was 40, after receiving 3 L of NS decision was made to place patient on Levophed drip for pressor support. Patient was admitted to ICU for shock requiring pressor support. Date: 07/03/2024 Overnight, the patient?s condition deteriorated significantly. An ABG was ordered upon admission, revealing severe acidosis (pH 7.17, pCO2 18, bicarbonate 7, pO2 86). In the ED, the patient received calcium carbonate to stabilize the cardiac membrane in response to hyperkalemia; however, due to the patient's low insulin levels, the full hyperkalemia protocol was not initiated. Following admission, the patient was started on albuterol breathing treatments. Repeat laboratory tests showed worsening of the metabolic panel, with a potassium level of 6.4, bicarbonate of 10, and creatinine of 4.6. The patient?s glucose levels were on the low end, prompting multiple D50 pushes. A decision was then made to initiate a D10 drip. Bicarbonate amps and albumin were also administered, but despite fluid resuscitation, the patient?s blood pressure remained low with a MAP barely sustaining in the 60s while on norepinephrine (1 mcg/h). Consequently, vasopressin and epinephrine were added to support blood pressure. Frequent repeat labs were ordered, and a decision per night warehouse selector was made to place nephrology consultation to address the underlying issues as the patient's condition continued to worsen. A central venous catheter (Vas-Cath) was placed, and the patient underwent emergent hemodialysis. Despite this intervention, the patient remained severely acidotic and was maximized on Levophed. at that point he was alreadly on 3 maxed pressores. Due to unstable hemodynamics, the patient was unable to tolerate another hemodialysis session. the decision was made to begin renal replacement therapy. An attempt was also made to perform paracentesis, during which only 150 cc of fluid was removed. However, the patient became hypoxic, and the decision was made to intubate. Afterward patient had paracentesis, and about 2 L of fluids removed Repeat labs was done , coagulation panel showed DIC in a morning PT was more than 65, INR was 2.7, APTT more than 139, fibrinogen less than 50, D-dimer was 3600. Patient was given multiple transfusion of PRBC, platelets, FFP, cryoprecipitate. Frequent coagulation panel was ordered. The patient's point of contact is a friend, Jacki, who was kept informed of the situation. Jacki relayed that the patient's daughter, who resides in [place], was en route and would want to assume decision-making responsibilities. The family was updated continuously, and after the daughter arrived, she was briefed on the patient's current condition and prognosis. The family expressed a desire to continue with medical management. The critical nature of the patient?s condition, including the worsening multiorgan system failure, was thoroughly explained to the family. The clinical course and next steps in management were discussed in detail. The patient's daughter expressed a wish to continue with medical management but, in accordance with the patient's wishes, chose not to pursue chest compressions. Exam Vital Signs Temp Pulse Resp BP Pulse Ox O2 Del Method O2 Flow Rate 96.0 F L 98 32 H 121/50 L 65 L Aerosol Mask 40 07/03/24 12:33 07/03/24 12:33 07/03/24 12:33 07/03/24 12:33 07/03/24 12:27 07/02/24 17:10 07/03/24 06:37 FiO2 80 07/03/24 11:05 Narrative Exam GENERAL: no acute distress, altered,not responding to questions, cachectic, HEENT: Mucous membranes moist. Pupils are reactive to light, icteric scleras, bruise on the left frontal bone NECK: Supple, no lymphadenopathy, no carotid bruits.R vas-cath was noted CARDIOVASCULAR: RRR. Normal S1/S2, . No pitting edema of bilateral LEs. RESPIRATORY:No wheezing, rhonchi, crackles. GASTROINTESTINAL: Abdomen severely distended, positive shifting,dullness, decreased BS MUSCULOSKELETAL:? multiple bruises on upper and lower extremities. NEUROLOGICAL: encephalopathic, was not able to perform INTEGUMENTARY: Multiple bruises on right upper arm, large hematoma on left lateral side of the femur, small bruises, right extremity Objective Labs 07/03/24 13:57 07/03/24 13:57 Labs: Laboratory Results - last 24 hr 07/02/24 07/02/24 07/02/24 12:20 12:27 13:57 WBC RBC Hgb Hct MCV MCH MCHC RDW Std Deviation Plt Count Neut % (Auto) Lymph % (Auto) [place] % (Auto) Eos % (Auto) Baso % (Auto) Neut # (Auto) Lymph # (Auto) [place] # (Auto) Eos # (Auto) Baso # (Auto) Immature Gran # (Auto) Absolute Nucleated RBC Immature Gran % Neutrophils % (Manual) Monocytes % (Manual) Metamyelocytes % Myelocytes % Nucleated RBC % Band Neutrophils Lymphocytes (Manual) Toxic Granulation Toxic Vacuolation Smear Path Review PT INR APTT D-Dimer Puncture Site ABG pH ABG pCO2 ABG pO2 ABG HCO3 ABG O2 Saturation ABG Base Excess VBG pH VBG pCO2 VBG pO2 VBG O2 Sat (David) VBG Base Excess Oxygen Liter Flow FiO2 Sodium Potassium Chloride Carbon Dioxide Anion Gap BUN Creatinine Estim Creat Clear Calc eGFR BUN/Creatinine Ratio Glucose Calculated Osmolality Lactic Acid 7.4 H* Calcium Corrected Calcium Phosphorus Magnesium Total Bilirubin 11.9 H D Direct Bilirubin 8.2 H AST ALT Alkaline Phosphatase Ammonia 144 H* Total Protein Albumin Globulin Albumin/Globulin Ratio Triglycerides Cholesterol LDL Cholesterol, Calc HDL Cholesterol Cholesterol/HDL Ratio Ur Collection Type Clean Catch Urine Color Drk-Yellow A Urine Clarity Turbid A Urine pH 5.5 Ur Specific [place] 1.020 Urine Protein 1+ A Urine Glucose (UA) Negative Urine Ketones Negative Urine Blood Trace Urine Nitrite Negative Urine Bilirubin 1+ A Urine Urobilinogen (Auto) Negative Ur Leukocyte Esterase Negative Urine RBC 5 H Urine WBC 5 Ur Squamous Epith Cells 0 Amorphous Crystals Present A Urine Bacteria Rare Hyaline Casts 1 Random Vancomycin Hepatitis A IgM Ab Hep Bs Antigen Hep B Core IgM Ab Hepatitis C Antibody Misc Test Result Blood Type Antibody Screen Crossmatch Blood Bank Wristband ID Blood Bank Comment 07/02/24 07/02/24 07/02/24 16:35 16:58 18:25 WBC 56.9 H* D RBC 3.34 L Hgb 11.1 L Hct 33.0 L MCV 99 MCH 33.2 MCHC 33.6 RDW Std Deviation 54.5 H Plt Count 81 L Neut % (Auto) 74 Lymph % (Auto) 5 L [place] % (Auto) 14 H Eos % (Auto) 0 Baso % (Auto) 0 Neut # (Auto) 42.1 H Lymph # (Auto) 3.1 [place] # (Auto) 7.7 H Eos # (Auto) 0.0 Baso # (Auto) 0.1 Immature Gran # (Auto) 3.86 H Absolute Nucleated RBC 0.13 H Immature Gran % 7 H Neutrophils % (Manual) 75 H Monocytes % (Manual) 14 H Metamyelocytes % 2 H Myelocytes % 3 H Nucleated RBC % 0 Band Neutrophils 4 Lymphocytes (Manual) 2 L Toxic Granulation 1+ Toxic Vacuolation 2+ Smear Path Review Cancelled PT INR APTT D-Dimer Puncture Site Right Brachial ABG pH 7.17 L* ABG pCO2 18 L* ABG pO2 86 ABG HCO3 7 L* ABG O2 Saturation 94 ABG Base Excess -20 L VBG pH 7.27 L VBG pCO2 25 L VBG pO2 46 VBG O2 Sat (David) 72 L VBG Base Excess -14 L Oxygen Liter Flow 8 FiO2 21 Sodium 128 L Potassium 6.4 H* Chloride 96 L Carbon Dioxide < 10.0 L* Anion Gap 22 H BUN 76 H Creatinine 4.6 H* Estim Creat Clear Calc 13.4 L eGFR 13 L* BUN/Creatinine Ratio 17 Glucose 70 L D Calculated Osmolality 277 Lactic Acid 12.5 H* Calcium 7.1 L Corrected Calcium 8.5 Phosphorus Magnesium Total Bilirubin 13.2 H D Direct Bilirubin AST 960 H* ALT 613 H* Alkaline Phosphatase 935 H D Ammonia Total Protein 5.6 L Albumin 2.2 L Globulin 3.4 Albumin/Globulin Ratio 0.6 L Triglycerides Cholesterol LDL Cholesterol, Calc HDL Cholesterol Cholesterol/HDL Ratio Ur Collection Type Urine Color Urine Clarity Urine pH Ur Specific [place] Urine Protein Urine Glucose (UA) Urine Ketones Urine Blood Urine Nitrite Urine Bilirubin Urine Urobilinogen (Auto) Ur Leukocyte Esterase Urine RBC Urine WBC Ur Squamous Epith Cells Amorphous Crystals Urine Bacteria Hyaline Casts Random Vancomycin Hepatitis A IgM Ab Non Reactive Hep Bs Antigen Non Reactive Hep B Core IgM Ab Non Reactive Hepatitis C Antibody Non Reactive Misc Test Result Blood Type Antibody Screen Crossmatch Blood Bank Wristband ID Blood Bank Comment 07/02/24 07/02/24 07/03/24 18:33 21:12 00:45 WBC RBC Hgb Hct MCV MCH MCHC RDW Std Deviation Plt Count Neut % (Auto) Lymph % (Auto) [place] % (Auto) Eos % (Auto) Baso % (Auto) Neut # (Auto) Lymph # (Auto) [place] # (Auto) Eos # (Auto) Baso # (Auto) Immature Gran # (Auto) Absolute Nucleated RBC Immature Gran % Neutrophils % (Manual) Monocytes % (Manual) Metamyelocytes % Myelocytes % Nucleated RBC % Band Neutrophils Lymphocytes (Manual) Toxic Granulation Toxic Vacuolation Smear Path Review PT INR APTT D-Dimer Puncture Site Left Radial Right Radial ABG pH 7.26 L 7.42 D ABG pCO2 21 L 25 L ABG pO2 70 L 66 L ABG HCO3 9 L* 16 L ABG O2 Saturation 91 93 ABG Base Excess -16 L -7 L VBG pH VBG pCO2 VBG pO2 VBG O2 Sat (David) VBG Base Excess Oxygen Liter Flow FiO2 36 100 Sodium 131 L Potassium 5.7 H D Chloride 96 L Carbon Dioxide < 10.0 L* Anion Gap 25 H BUN 77 H Creatinine 4.6 H* Estim Creat Clear Calc 13.4 L eGFR 13 L* BUN/Creatinine Ratio 17 Glucose 103 Calculated Osmolality 285 Lactic Acid 13.7 H* Calcium 7.3 L Corrected Calcium 8.6 Phosphorus Magnesium Total Bilirubin 13.6 H Direct Bilirubin AST 798 H* ALT 537 H* Alkaline Phosphatase 811 H D Ammonia Total Protein 5.5 L Albumin 2.4 L Globulin 3.1 Albumin/Globulin Ratio 0.8 L Triglycerides Cholesterol LDL Cholesterol, Calc HDL Cholesterol Cholesterol/HDL Ratio Ur Collection Type Urine Color Urine Clarity Urine pH Ur Specific [place] Urine Protein Urine Glucose (UA) Urine Ketones Urine Blood Urine Nitrite Urine Bilirubin Urine Urobilinogen (Auto) Ur Leukocyte Esterase Urine RBC Urine WBC Ur Squamous Epith Cells Amorphous Crystals Urine Bacteria Hyaline Casts Random Vancomycin Hepatitis A IgM Ab Hep Bs Antigen Hep B Core IgM Ab Hepatitis C Antibody Misc Test Result Blood Type A Positive Antibody Screen NEGATIVE Crossmatch See Detail Blood Bank Wristband ID Yes Blood Bank Comment PLATP Ready 07/03/24 07/03/24 07/03/24 04:08 04:26 09:00 WBC 97.0 H* D RBC 2.96 L Hgb 10.0 L Hct 30.2 L MCV 102 H MCH 33.8 MCHC 33.1 RDW Std Deviation 57.8 H Plt Count 50 L D Neut % (Auto) 70 Lymph % (Auto) 4 L [place] % (Auto) 15 H Eos % (Auto) 0 Baso % (Auto) 0 Neut # (Auto) 67.7 H Lymph # (Auto) 3.7 [place] # (Auto) 15.0 H Eos # (Auto) 0.1 Baso # (Auto) 0.4 H Immature Gran # (Auto) 10.14 H Absolute Nucleated RBC 0.58 H Immature Gran % 10 H Neutrophils % (Manual) Monocytes % (Manual) Metamyelocytes % Myelocytes % Nucleated RBC % 1 H Band Neutrophils Lymphocytes (Manual) Toxic Granulation Toxic Vacuolation Smear Path Review Sent to Pathologist PT 28.9 H D INR 2.8 H APTT 76.5 H D D-Dimer Puncture Site Right Radial Arterial Line ABG pH 7.08 L* D 6.84 L* D ABG pCO2 25 L 67 H D ABG pO2 75 L 184 H D ABG HCO3 8 L* 11 L ABG O2 Saturation 89 L 99 H ABG Base Excess -21 L -20 L VBG pH VBG pCO2 VBG pO2 VBG O2 Sat (David) VBG Base Excess Oxygen Liter Flow FiO2 100 100 Sodium 135 L Potassium 5.4 H Chloride 96 L Carbon Dioxide < 10.0 L* Anion Gap 29 H BUN 51 H Creatinine 3.5 H D Estim Creat Clear Calc 17.6 L eGFR 18 L BUN/Creatinine Ratio 15 Glucose 90 Calculated Osmolality 283 Lactic Acid 20.0 H* Calcium 7.2 L Corrected Calcium 8.4 L Phosphorus 8.1 H Magnesium 2.3 Total Bilirubin 13.3 H Direct Bilirubin AST 701 H* ALT 462 H Alkaline Phosphatase 642 H D Ammonia Total Protein 5.2 L Albumin 2.5 L Globulin 2.7 Albumin/Globulin Ratio 0.9 L Triglycerides 58 Cholesterol < 50 L LDL Cholesterol, Calc 33 HDL Cholesterol < 5 L Cholesterol/HDL Ratio 10.0 H Ur Collection Type Urine Color Urine Clarity Urine pH Ur Specific [place] Urine Protein Urine Glucose (UA) Urine Ketones Urine Blood Urine Nitrite Urine Bilirubin Urine Urobilinogen (Auto) Ur Leukocyte Esterase Urine RBC Urine WBC Ur Squamous Epith Cells Amorphous Crystals Urine Bacteria Hyaline Casts Random Vancomycin 8.8 Hepatitis A IgM Ab Hep Bs Antigen Hep B Core IgM Ab Hepatitis C Antibody Misc Test Result Platelets confirmed Blood Type Antibody Screen Crossmatch Blood Bank Wristband ID Blood Bank Comment 07/03/24 07/03/24 07/03/24 09:04 09:04 10:41 WBC 59.8 H* D RBC 1.57 L* Hgb 5.3 L* D Hct 16.9 L* MCV 108 H MCH 33.8 MCHC 31.4 RDW Std Deviation 62.0 H Plt Count 34 L D Neut % (Auto) 69 Lymph % (Auto) 7 L [place] % (Auto) 14 H Eos % (Auto) 0 Baso % (Auto) 0 Neut # (Auto) 41.0 H Lymph # (Auto) 4.0 [place] # (Auto) 8.3 H Eos # (Auto) 0.1 Baso # (Auto) 0.1 Immature Gran # (Auto) 6.35 H Absolute Nucleated RBC 0.99 H Immature Gran % 11 H Neutrophils % (Manual) Monocytes % (Manual) Metamyelocytes % Myelocytes % Nucleated RBC % 2 H Band Neutrophils Lymphocytes (Manual) Toxic Granulation Toxic Vacuolation Smear Path Review PT > 63.0 H* D INR APTT > 139.0 H* D D-Dimer Puncture Site Left Femoral ABG pH 7.11 L* D ABG pCO2 40 D ABG pO2 62 L D ABG HCO3 13 L ABG O2 Saturation 84 L ABG Base Excess -15 L VBG pH VBG pCO2 VBG pO2 VBG O2 Sat (David) VBG Base Excess Oxygen Liter Flow FiO2 80 Sodium 144 Potassium 5.0 Chloride 103 Carbon Dioxide 12.8 L* Anion Gap 28 H BUN 48 H Creatinine 3.2 H Estim Creat Clear Calc 19.2 L eGFR 20 L BUN/Creatinine Ratio 15 Glucose 161 H D Calculated Osmolality 302 H Lactic Acid Cancelled 22.0 H* Calcium 9.8 D Corrected Calcium 11.5 H D Phosphorus Magnesium Total Bilirubin 7.4 H D Direct Bilirubin AST 563 H* ALT 300 H Alkaline Phosphatase 318 H D Ammonia Total Protein 3.4 L Albumin 1.9 L D Globulin 1.5 L Albumin/Globulin Ratio 1.3 Triglycerides Cholesterol LDL Cholesterol, Calc HDL Cholesterol Cholesterol/HDL Ratio Ur Collection Type Urine Color Urine Clarity Urine pH Ur Specific [place] Urine Protein Urine Glucose (UA) Urine Ketones Urine Blood Urine Nitrite Urine Bilirubin Urine Urobilinogen (Auto) Ur Leukocyte Esterase Urine RBC Urine WBC Ur Squamous Epith Cells Amorphous Crystals Urine Bacteria Hyaline Casts Random Vancomycin Hepatitis A IgM Ab Hep Bs Antigen Hep B Core IgM Ab Hepatitis C Antibody Misc Test Result Blood Type Antibody Screen Crossmatch Blood Bank Wristband ID Blood Bank Comment 07/03/24 07/03/24 10:45 11:00 WBC 71.3 H* D RBC 1.78 L* Hgb 6.0 L* Hct 18.3 L* MCV 103 H MCH 33.7 MCHC 32.8 RDW Std Deviation 58.1 H Plt Count 38 L Neut % (Auto) 69 Lymph % (Auto) 6 L [place] % (Auto) 13 H Eos % (Auto) 0 Baso % (Auto) 0 Neut # (Auto) 49.3 H Lymph # (Auto) 4.2 [place] # (Auto) 9.3 H Eos # (Auto) 0.1 Baso # (Auto) 0.2 Immature Gran # (Auto) 8.13 H Absolute Nucleated RBC 1.02 H Immature Gran % 11 H Neutrophils % (Manual) Monocytes % (Manual) Metamyelocytes % Myelocytes % Nucleated RBC % 1 H Band Neutrophils Lymphocytes (Manual) Toxic Granulation Toxic Vacuolation Smear Path Review PT INR APTT D-Dimer 3600 H Puncture Site ABG pH ABG pCO2 ABG pO2 ABG HCO3 ABG O2 Saturation ABG Base Excess VBG pH VBG pCO2 VBG pO2 VBG O2 Sat (David) VBG Base Excess Oxygen Liter Flow FiO2 Sodium 140 Potassium 4.1 D Chloride 100 Carbon Dioxide 13.8 L* Anion Gap 26 H BUN 35 H Creatinine 2.2 H D Estim Creat Clear Calc 28.0 L eGFR 31 L BUN/Creatinine Ratio 16 Glucose 81 D Calculated Osmolality 286 Lactic Acid Calcium 8.1 L D Corrected Calcium 9.0 D Phosphorus Magnesium Total Bilirubin 9.9 H D Direct Bilirubin AST 1066 H* ALT 459 H Alkaline Phosphatase 375 H D Ammonia Total Protein 4.9 L Albumin 2.9 L D Globulin 2.0 L Albumin/Globulin Ratio 1.5 Triglycerides Cholesterol LDL Cholesterol, Calc HDL Cholesterol Cholesterol/HDL Ratio Ur Collection Type Urine Color Urine Clarity Urine pH Ur Specific [place] Urine Protein Urine Glucose (UA) Urine Ketones Urine Blood Urine Nitrite Urine Bilirubin Urine Urobilinogen (Auto) Ur Leukocyte Esterase Urine RBC Urine WBC Ur Squamous Epith Cells Amorphous Crystals Urine Bacteria Hyaline Casts Random Vancomycin Hepatitis A IgM Ab Hep Bs Antigen Hep B Core IgM Ab Hepatitis C Antibody Misc Test Result Blood Type Antibody Screen Crossmatch Blood Bank Wristband ID Blood Bank Comment ABG Interpretation ABG results: 07/02/24 07/02/24 07/02/24 16:58 18:25 18:33 ABG pH 7.17 L* 7.26 L ABG pCO2 18 L* 21 L ABG pO2 86 70 L ABG HCO3 7 L* 9 L* ABG O2 Saturation 94 91 ABG Base Excess -20 L -16 L VBG pH 7.27 L VBG pCO2 25 L VBG pO2 46 VBG Base Excess -14 L 07/03/24 07/03/24 07/03/24 00:45 04:08 09:00 ABG pH 7.42 D 7.08 L* D 6.84 L* D ABG pCO2 25 L 25 L 67 H D ABG pO2 66 L 75 L 184 H D ABG HCO3 16 L 8 L* 11 L ABG O2 Saturation 93 89 L 99 H ABG Base Excess -7 L -21 L -20 L VBG pH VBG pCO2 VBG pO2 VBG Base Excess 07/03/24 10:41 ABG pH 7.11 L* D ABG pCO2 40 D ABG pO2 62 L D ABG HCO3 13 L ABG O2 Saturation 84 L ABG Base Excess -15 L VBG pH VBG pCO2 VBG pO2 VBG Base Excess Quality Measures Quality Measures none Advance care planning discussed with:: child Assessment & Plan Assessment Current Active Medications: Generic Name Dose Route Start Last Admin Trade Name Freq PRN Reason Stop Dose Admin Dextrose 25 ml 07/02/24 16:25 07/02/24 22:09 Dextrose 50%-Water Inj 50 Ml Syringe IV 08/01/24 16:24 25 ml Q15MIN PRN Administration BG 50-70 responsive npo pt Dextrose 50 ml 07/02/24 16:25 07/03/24 12:03 Dextrose 50%-Water Inj 50 Ml Syringe IV 08/01/24 16:24 50 ml Q15MIN PRN Administration BG <50 OR BG <70 & pt unresponsive Glucagon 1 mg 07/02/24 16:25 Glucagon Inj 1 Mg Vial IM Q15MIN PRN BG <70, and no IV access Heparin Sodium (Porcine) 5,000 unit 07/02/24 21:00 Heparin Sod Inj 5000 Unit/Ml Vial SC 07/16/24 20:59 Q12HR ROHINI Heparin Sodium (Porcine) 3,000 unit 07/02/24 22:50 07/03/24 01:01 Heparin Sod Inj 1000 Unit/Ml Vial 10 Ml INDWELLCAT 07/16/24 22:49 3,000 unit PRN PRN Administration DIALYSIS Hydrocortisone Sodium Succinate 50 mg 07/03/24 00:00 07/03/24 11:26 Hydrocortisone Sod Succ Inj 100 Mg Vial IV 08/02/24 00:00 50 mg Q6HR ROHINI Administration Norepinephrine Bitartrate 16 mg in 250 mls @ 3.508 mls/hr 07/02/24 15:09 07/03/24 09:47 Levophed In Ns 16mg/250ml IV 08/01/24 15:08 2.6 mcg/kg/min .Q24H PRN 182.43 mls/hr PER PROTOCOL Titration Protocol 0.05 MCG/KG/MIN Albumin Human 25 gm in 100 mls @ 100 mls/hr 07/02/24 18:00 07/03/24 11:27 Albuminar-25 Ivpb IV 07/05/24 17:59 100 mls/hr Q6HR ROHINI Administration Piperacillin/Tazobactam/Dextrose 3.375 gm in 50 mls @ 12.5 mls/hr 07/02/24 18:00 07/03/24 11:04 Zosyn IV 07/09/24 17:59 12.5 mls/hr Q12HR ROHINI Administration Vasopressin/Sodium Chloride 20 unit in 100 mls @ 9 mls/hr 07/02/24 18:08 07/03/24 03:07 Vasostrict/Ns Ivpb IV 08/01/24 18:07 0.03 unit/min .Q11H7M PRN 9 mls/hr PER PROTOCOL Administration Protocol 0.03 UNIT/MIN Epinephrine/Sodium Chloride 4 mg in 250 mls @ 14.033 mls/hr 07/02/24 18:19 07/03/24 11:03 Adrenalin/Ns 4 Mg Ivpb IV 08/01/24 18:18 1 mcg/kg/min .[id number] PRN 280.661 mls/hr per protocol Administration Protocol 0.05 MCG/KG/MIN Dextrose 500 mls @ 60 mls/hr 07/02/24 19:30 07/03/24 04:26 D10w IV 08/01/24 18:19 60 mls/hr .Q8H20M ROHINI Administration Albumin Human 25 gm in 100 mls @ 100 mls/hr 07/02/24 22:52 Albuminar-25 Ivpb IV 07/05/24 22:51 QDAY PRN DIALYSIS Norepinephrine Bitartrate 32 500 mls @ 3.508 mls/hr 07/03/24 09:33 07/03/24 10:48 mg/ Sodium Chloride IV 08/02/24 09:32 3 mcg/kg/min .Q24H PRN 210.496 mls/hr PER PROTOCOL Administration Protocol 0.05 MCG/KG/MIN Epinephrine HCl 16 mg/ Sodium 250 mls @ 3.508 mls/hr 07/03/24 11:03 07/03/24 11:31 Chloride IV 08/02/24 11:02 2 mcg/kg/min .Q24H PRN 140.331 mls/hr per protocol Administration Protocol 0.05 MCG/KG/MIN Lactulose 30 gm 07/02/24 16:45 07/03/24 06:11 Lactulose Syrup 20 Gm/30 Ml Udc PO 08/01/24 16:44 30 gm TID ROHINI Administration Protocol Ondansetron HCl 4 mg 07/02/24 16:27 Ondansetron Inj 2 Mg/Ml Inj 2 Ml IV 08/01/24 16:26 Q6H PRN NAUSEA OR VOMITING Protocol Pantoprazole Sodium 40 mg 07/03/24 09:00 07/03/24 11:04 Pantoprazole Inj 40 Mg Vial IVP 08/02/24 08:59 40 mg QDAY ROHINI Administration Pharmacy Consult 1 each 07/03/24 09:00 07/03/24 11:05 Vancomycin Pharmacy To Dose 1 Each Each IV 08/02/24 08:59 Not Given QDAY [facility] Pharmacy Consult 1 each 07/02/24 16:41 Pharmacy Renal Dose Adjustment 1 Ea XX 08/01/24 16:40 PRN PRN CONSULT Sodium Bicarbonate 50 meq 07/02/24 19:00 07/03/24 11:26 Sodium Bicarb Inj 8.4% 1 Meq/Ml Vial 50 Ml IV 08/01/24 18:59 50 meq Q4H [facility] Administration Plan 74-year-old male with past medical history of DM on Ozempic, history of cirrhosis 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 Patient is intubated, mechanical ventilation Causes severe acidosis, hyperammonemia, septic shock, multisystem organ failure, multiple electrolyte disbalance -Monitor -Treat underlying conditions CVS Distributive shock requiring multiple pressor support Severe lactic acidosis -Patient condition progressively deteriorate, patient developed severe acidosis, MAP is about 65-70 maxed out on pressors -obtain blood cultures, peritoneal fluid culture was sent, echo was ordered, will do a cheetah monitor -Broad-spectrum coverage -Patient also received multiple doses of albumin -Continue supportive pressors Respiratory Acute hypoxic respiratory failure most likely secondary due to bilateral pneumonia found on CT chest Patient is intubated on mechanical ventilation, volume control with PEEP of 5, tidal volume of 500, respiratory rate 32, FiO2 80 -Cover with Zosyn and vancomycin -Sputum culture was ordered, will follow-up with the results -Continue respiratory support GI Alcoholic cirrhosis Marked ascites Cholelithiasis, suspicious for cholecystitis Severe transaminitis most likely secondary to shock liver Hyperammonemia Hypoalbuminemia Madrey score of 65.2,(poor prognosis), Child-Vargas 1C, CT abdomen showed marked ascites, cirrhosis, wall thickening distal esophagus, cholelithiasis, suspicious for cholecystitis. -Lactulose 30 3 times daily -Monitor LFTs, address underlying condition -Paracentesis was done, cultures were sent, about 2 L of fluids was obtained -Albumin as needed -Continue monitor with daily CMP Renal #Acid-base disorder(mixed) #Delta/delta >1.8 suggestive of HAGMA with underlying metabolic alkalosis, most likely secondary due to multiple bicarb pushes #Hyperkalemia #Hyponatremia #Hypochloremia #MAHNAZ, underwent 1 session of hemodialysis, currently is on renal replacement therapy Anion gap of 29 was corrected albumin approximately 33, PH of 7.08 Lactic acid of 22 Patient received hemodialysis session, currently is on renal replacement therapy, multiple rounds of albumin was given along with bicarb pushes, -Frequent ABG, CMP, CBC was ordered -Emergency Veterinary Assistant on board -Continue current management, treat underlying causes accordingly Hematology #DIC : morning PT was more than 65, INR was 2.7, APTT more than 139, fibrinogen less than 50, D-dimer was 3600. Patient was given multiple transfusion of PRBC, platelets, FFP, cryoprecipitate. Frequent coagulation panel was ordered. However patient was bleeding from puncture sites, from oral cavity, nose, and ear. # Severe anemia requiring multiple transfusion No signs of acute bleeding -Will continue to monitor Endocrine #History of DM on Ozempic #Hypoglycemia could be in the setting of poor oral intake, however he was getting his Ozempic shots -Multiple pushes of D50 was given -D10 W drip ID #Sepsis #Severe leukocytosis On admission Labs revealed leukocytosis with WBC of 56.9, Pro-Anuel was elevated, temperature was 92.7 on presentation, lactic acidosis with lactate of 7.4, On 07/03 patient condition significantly clinically deteriorating,Morning labs revealed WBC of 59.8, down from 97, RBC 1.57, hemoglobin 5.3, hematocrit 16.9. Lactic acid of 22 -Paracentesis was done -Will send peritoneal fluid for culture -Continue vancomycin and Zosyn Disposition:ICU, patient is intubated mechanical ventilation DVT prophylaxis: Patient developed DIC, currently getting multiple blood transfusion, platelet transfusion, cryo precipitate GI prophylaxis: PPI Diet: NPO Lines: PIV CODE STATUS: DNR The patient?s family has been continuously updated on the patient?s severe condition, with prognosis shared as guarded. While the family has expressed their wish to continue with the current treatment plan, they have specifically declined chest compressions, in accordance with the patient's previously stated preferences. The family was provided with the opportunity to ask any questions, and all of their concerns were addressed. They have been assured that they will continue to be kept informed as the situation evolves. Patient care was discussed with attending physician Dr. Mk Johnson MD PGY-2 I have carefully reviewed this document. Due to imperfections in the voice software, there could be grammatical errors including phonetic/typographic errors. This in no way compromises the medical care the patient is receiving
[2024-07-03 12:46] LABS: Peritoneal Fluid WBC 156 /cmm
[2024-07-03 12:48] LABS: Peritoneal Fluid Appearance Hazy; Peritoneal Fluid Color Yellow
--- NOTE | 2024-07-03 12:48 | PC.NURSE ---
Arterial pressure increasing, Dr. Patel called and order to decrease Qb 100.
[2024-07-03 12:49] LABS: Peritoneal Fluid Polynuclear 24 %; RBC,Peritoneal Fluid 12000 /cmm
[2024-07-03 12:50] LABS: Peritoneal Fluid Mononuclear 76 %
[2024-07-03] MEDS: DEXMEDETOMIDINE 200 MCG IVPB 200 MCG/50 ML BOTTLE IV (13:10)
[2024-07-03 13:12] LABS: Fibrinogen 58 mg/dL (175-375); INR 3.7 (0.9-1.3); Prothrombin Time 36.5 Seconds (9.0-12.2)
--- NOTE | 2024-07-03 13:12 | PC.NURSE ---
2nd unit of blood finished.
[2024-07-03 13:15] LABS: Partial Thromboplastin Time > 139.0 Seconds (22.0-36.0)
[2024-07-03 13:17] LABS: Fibrinogen < 50 mg/dL (175-375); Partial Thromboplastin Time > 139.0 Seconds (22.0-36.0); Prothrombin Time > 63.0 Seconds (9.0-12.2)
[2024-07-03 13:19] LABS: Slide Review Platelets confirmed
[2024-07-03 13:53] LABS: Slide Review Platelets confirmed
[2024-07-03 13:55] LABS: Albumin, Serum 2.8 gm/dL (3.4-4.8); Anion Gap 26 (7-16); BUN/Creatinine Ratio 16 Ratio (12-20); Blood Urea Nitrogen 29 mg/dL (9-23); Calcium 7.1 mg/dL (8.3-10.6); Calcium (Corrected) 8.1 mg/dL (8.5-10.1); Chloride 102 mMol/L (98-107); Creatinine (Component) 1.8 mg/dL (0.6-1.3); Estimated Creatinine Clearance 34.2 mL/min (>60); Glucose 111 mg/dL (74-106); Osmolality,Calculated 286 (275-295); Phosphorous 4.5 mg/dL (2.4-5.1); Potassium 3.6 mMol/L (3.4-5.1); Sodium 140 mMol/L (136-145); eGFR 39 See Note
[2024-07-03 14:13] LABS: Carbon Dioxide 11.8 mMol/L (20.0-31.0)
[2024-07-03] MEDS: TRANEXAMIC ACID 1,000 MG IVPB 1,000 MG/100 ML BAG 200 MG IV (14:28)
[2024-07-03 14:29] LABS: Basophils # (Auto) 0.3 Thou/mm3 (0.0-0.2); Basophils % (Auto) 0 % (0-2.5); Eosinophils # (Auto) 0.2 Thou/mm3 (0.0-0.5); Eosinophils % (Auto) 0 % (0-10); Hematocrit 24.3 % (41.0-53.0); Immature Granulocytes % (Auto) 12 % (0-0); Immature Granulocytes Auto 8.74 Thou/mm3 (0.00-0.00); Lymphocytes % (Auto) 7 % (10-50); Mean Corpuscular HGB Conc 33.7 g/dl (31.0-37.0); Mean Corpuscular Hemoglobin 32.3 pg (25.0-35.0); Mean Corpuscular Volume 96 fL (80-100); Monocytes # (Auto) 7.3 Thou/mm3 (0.0-0.8); Monocytes % (Auto) 10 % (0-12); Neutrophils # (Auto) 53.5 Thou/mm3 (1.8-7.7); Neutrophils % (Auto) 71 % (37-80); Nucleated Red Blood Cell # 1.57 Thou/mm3 (0.00-0.00); Nucleated Red Blood Cell % 2 /100 WBC (0); RDW Standard Deviation 59.8 fL (35.1-43.9); Red Blood Count 2.54 Miln/mm3 (4.50-5.90)
--- NOTE | 2024-07-03 14:30 | PC.NURSE ---
Arterial alarm, unable to clear alarm, so cartridge changed. All blood returned to pt.
[2024-07-03 14:40] LABS: D-Dimer > 3820 ng/mL (<600)
[2024-07-03 14:45] LABS: Hemoglobin 8.2 g/dL (13.5-16.0); Platelet Count 64 Thou/mm3 (140-440)
[2024-07-03] MEDS: VANCOMYCIN/NS 500 MG IVPB 100 ML 120 MG IV (14:49)
--- NOTE | 2024-07-03 15:03 | PC.SS ---
Update: Patient received dialysis session today.
[2024-07-03 15:06] LABS: Alanine Aminotransferase 621 U/L (10-49); Albumin, Serum 3.2 gm/dL (3.4-4.8); Albumin/Globulin Ratio 1.7 (1.2-2.2); Alkaline Phosphatase 331 U/L (46-116); Anion Gap 25 (7-16); Aspartate Amino Transferase 1827 U/L (0-34); BUN/Creatinine Ratio 16 Ratio (12-20); Bilirubin,Total 10.3 mg/dL (0.3-1.2); Blood Urea Nitrogen 27 mg/dL (9-23); Calcium 7.4 mg/dL (8.3-10.6); Chloride 100 mMol/L (98-107); Creatinine (Component) 1.7 mg/dL (0.6-1.3); Estimated Creatinine Clearance 36.2 mL/min (>60); Globulin 1.9 gm/dL (2.3-3.5); Glucose 66 mg/dL (74-106); Osmolality,Calculated 280 (275-295); Potassium 3.7 mMol/L (3.4-5.1); Sodium 139 mMol/L (136-145); Total Protein 5.1 gm/dL (5.7-8.2); eGFR 42 See Note
[2024-07-03 15:07] LABS: Carbon Dioxide 14.1 mMol/L (20.0-31.0)
[2024-07-03] MEDS: DEXTROSE 50% SYR 187.5 ML in DEXTROSE 10%-WATER 312.5 ML 40 ML IV (15:08)
[2024-07-03] MEDS: DEXTROSE 5% IV ×2 (15:12→18:18)
[2024-07-03] MEDS: METHYLENE BLUE IV ×2 (15:12→18:18)
[2024-07-03] MEDS: WATER IV ×2 (15:12→18:18)
[2024-07-03 15:17] LABS: INR 2.9 (0.9-1.3); Prothrombin Time 29.1 Seconds (9.0-12.2)
[2024-07-03 15:22] LABS: Partial Thromboplastin Time > 139.0 Seconds (22.0-36.0)
[2024-07-03 15:23] LABS: Fibrinogen 68 mg/dL (175-375)
--- NOTE | 2024-07-03 15:25 | PD.INTPROG ---
Documentation for date of: 07/03/24 Subjective Subjective Interval history: This is a 74yo M who presented to the ER yesterday with gen weakness and s/p fall. He was hypotensive in the ER and given 3lts of IVF however still hypotensive therefore started on levo. ICU was called for admission. Pt was felt to have septic shock and started on broad spectrum abx. Cx were sent. His LA was elevated and he has a h/o cirrhosis. Pt with renal failure and an HD line was placed. He was on high dose levophed at 1mcg/kg/min at the time of arrival to the ICU. ER assisted with placement of HD line. He did not tolerate HD well overnight. He had 2nd and 3rd pressor added overnight and was still found to have refractory shock. He was very acidotic and developed respiratory failure. Family was aggreable for intubation and pt was intubated. CRRT was started, A line placed and TLC placed. Critical Care Note Critical care time (min.): 155 Exam Vital Signs Temp Pulse Resp BP Pulse Ox O2 Del Method O2 Flow Rate 97.1 F 88 32 H 90/44 L 77 L Aerosol Mask 40 07/03/24 15:21 07/03/24 15:21 07/03/24 15:21 07/03/24 15:21 07/03/24 15:08 07/02/24 17:10 07/03/24 15:08 FiO2 80 07/03/24 11:05 Narrative Exam Gen- cachectic, ill appearing, temporal wasting noted, jaundice, L frontal bruising from fall HEENT- NC/AT, mucosa dry, sclera icteric, pupils small but reactive, poor dentition Chest- diminished lung gates, crackles at bases, occasional expiratory wheeze, HRRR, tachy, Abd- distended, umbilical hernia, no rebound, no guarding, no masses, mult dilated veins on abd Ext- no edema, pulses faint, mult areas of bruising, large L upper thigh hematoma Drips levo epi vaso Physical Exam Completion Physical Exam Complete?: Yes Objective - Director Home Labs 07/04/24 07:00 07/04/24 07:00 Labs: Laboratory Results - last 24 hr 07/02/24 07/02/24 07/02/24 13:57 16:35 16:58 WBC 56.9 H* D RBC 3.34 L Hgb 11.1 L Hct 33.0 L MCV 99 MCH 33.2 MCHC 33.6 RDW Std Deviation 54.5 H Plt Count 81 L Neut % (Auto) 74 Lymph % (Auto) 5 L Bailey % (Auto) 14 H Eos % (Auto) 0 Baso % (Auto) 0 Neut # (Auto) 42.1 H Lymph # (Auto) 3.1 Bailey # (Auto) 7.7 H Eos # (Auto) 0.0 Baso # (Auto) 0.1 Immature Gran # (Auto) 3.86 H Absolute Nucleated RBC 0.13 H Immature Gran % 7 H Neutrophils % (Manual) 75 H Monocytes % (Manual) 14 H Metamyelocytes % 2 H Myelocytes % 3 H Nucleated RBC % 0 Band Neutrophils 4 Lymphocytes (Manual) 2 L Toxic Granulation 1+ Toxic Vacuolation 2+ Smear Path Review Cancelled PT INR APTT Fibrinogen D-Dimer Puncture Site Right Brachial ABG pH 7.17 L* ABG pCO2 18 L* ABG pO2 86 ABG HCO3 7 L* ABG O2 Saturation 94 ABG Base Excess -20 L VBG pH VBG pCO2 VBG pO2 VBG O2 Sat (David) VBG Base Excess Oxygen Liter Flow 8 FiO2 21 Sodium 128 L Potassium 6.4 H* Chloride 96 L Carbon Dioxide < 10.0 L* Anion Gap 22 H BUN 76 H Creatinine 4.6 H* Estim Creat Clear Calc 13.4 L eGFR 13 L* BUN/Creatinine Ratio 17 Glucose 70 L D Calculated Osmolality 277 Lactic Acid Calcium 7.1 L Corrected Calcium 8.5 Phosphorus Magnesium Total Bilirubin 11.9 H D 13.2 H D Direct Bilirubin 8.2 H AST 960 H* ALT 613 H* Alkaline Phosphatase 935 H D Total Protein 5.6 L Albumin 2.2 L Globulin 3.4 Albumin/Globulin Ratio 0.6 L Triglycerides Cholesterol LDL Cholesterol, Calc HDL Cholesterol Cholesterol/HDL Ratio Peritoneal Color Peritoneal Appearance Peritoneal WBC Peritoneal RBC Periton Polynucl WBCs Periton Mononucl WBCs Random Vancomycin Hepatitis A IgM Ab Non Reactive Hep Bs Antigen Non Reactive Hep B Core IgM Ab Non Reactive Hepatitis C Antibody Non Reactive Misc Test Result Blood Type Antibody Screen Crossmatch Blood Bank Wristband ID Blood Bank Comment 07/02/24 07/02/24 07/02/24 18:25 18:33 21:12 WBC RBC Hgb Hct MCV MCH MCHC RDW Std Deviation Plt Count Neut % (Auto) Lymph % (Auto) Bailey % (Auto) Eos % (Auto) Baso % (Auto) Neut # (Auto) Lymph # (Auto) Bailey # (Auto) Eos # (Auto) Baso # (Auto) Immature Gran # (Auto) Absolute Nucleated RBC Immature Gran % Neutrophils % (Manual) Monocytes % (Manual) Metamyelocytes % Myelocytes % Nucleated RBC % Band Neutrophils Lymphocytes (Manual) Toxic Granulation Toxic Vacuolation Smear Path Review PT INR APTT Fibrinogen D-Dimer Puncture Site Left Radial ABG pH 7.26 L ABG pCO2 21 L ABG pO2 70 L ABG HCO3 9 L* ABG O2 Saturation 91 ABG Base Excess -16 L VBG pH 7.27 L VBG pCO2 25 L VBG pO2 46 VBG O2 Sat (David) 72 L VBG Base Excess -14 L Oxygen Liter Flow FiO2 36 Sodium 131 L Potassium 5.7 H D Chloride 96 L Carbon Dioxide < 10.0 L* Anion Gap 25 H BUN 77 H Creatinine 4.6 H* Estim Creat Clear Calc 13.4 L eGFR 13 L* BUN/Creatinine Ratio 17 Glucose 103 Calculated Osmolality 285 Lactic Acid 12.5 H* 13.7 H* Calcium 7.3 L Corrected Calcium 8.6 Phosphorus Magnesium Total Bilirubin 13.6 H Direct Bilirubin AST 798 H* ALT 537 H* Alkaline Phosphatase 811 H D Total Protein 5.5 L Albumin 2.4 L Globulin 3.1 Albumin/Globulin Ratio 0.8 L Triglycerides Cholesterol LDL Cholesterol, Calc HDL Cholesterol Cholesterol/HDL Ratio Peritoneal Color Peritoneal Appearance Peritoneal WBC Peritoneal RBC Periton Polynucl WBCs Periton Mononucl WBCs Random Vancomycin Hepatitis A IgM Ab Hep Bs Antigen Hep B Core IgM Ab Hepatitis C Antibody Misc Test Result Blood Type A Positive Antibody Screen NEGATIVE Crossmatch See Detail Blood Bank Wristband ID Yes Blood Bank Comment PLATP Ready 07/03/24 07/03/24 07/03/24 00:45 04:08 04:26 WBC 97.0 H* D RBC 2.96 L Hgb 10.0 L Hct 30.2 L MCV 102 H MCH 33.8 MCHC 33.1 RDW Std Deviation 57.8 H Plt Count 50 L D Neut % (Auto) 70 Lymph % (Auto) 4 L Bailey % (Auto) 15 H Eos % (Auto) 0 Baso % (Auto) 0 Neut # (Auto) 67.7 H Lymph # (Auto) 3.7 Bailey # (Auto) 15.0 H Eos # (Auto) 0.1 Baso # (Auto) 0.4 H Immature Gran # (Auto) 10.14 H Absolute Nucleated RBC 0.58 H Immature Gran % 10 H Neutrophils % (Manual) Monocytes % (Manual) Metamyelocytes % Myelocytes % Nucleated RBC % 1 H Band Neutrophils Lymphocytes (Manual) Toxic Granulation Toxic Vacuolation Smear Path Review Sent to Pathologist PT 28.9 H D INR 2.8 H APTT 76.5 H D Fibrinogen D-Dimer Puncture Site Right Radial Right Radial ABG pH 7.42 D 7.08 L* D ABG pCO2 25 L 25 L ABG pO2 66 L 75 L ABG HCO3 16 L 8 L* ABG O2 Saturation 93 89 L ABG Base Excess -7 L -21 L VBG pH VBG pCO2 VBG pO2 VBG O2 Sat (David) VBG Base Excess Oxygen Liter Flow FiO2 100 100 Sodium 135 L Potassium 5.4 H Chloride 96 L Carbon Dioxide < 10.0 L* Anion Gap 29 H BUN 51 H Creatinine 3.5 H D Estim Creat Clear Calc 17.6 L eGFR 18 L BUN/Creatinine Ratio 15 Glucose 90 Calculated Osmolality 283 Lactic Acid 20.0 H* Calcium 7.2 L Corrected Calcium 8.4 L Phosphorus 8.1 H Magnesium 2.3 Total Bilirubin 13.3 H Direct Bilirubin AST 701 H* ALT 462 H Alkaline Phosphatase 642 H D Total Protein 5.2 L Albumin 2.5 L Globulin 2.7 Albumin/Globulin Ratio 0.9 L Triglycerides 58 Cholesterol < 50 L LDL Cholesterol, Calc 33 HDL Cholesterol < 5 L Cholesterol/HDL Ratio 10.0 H Peritoneal Color Peritoneal Appearance Peritoneal WBC Peritoneal RBC Periton Polynucl WBCs Periton Mononucl WBCs Random Vancomycin 8.8 Hepatitis A IgM Ab Hep Bs Antigen Hep B Core IgM Ab Hepatitis C Antibody Misc Test Result Platelets confirmed Blood Type Antibody Screen Crossmatch Blood Bank Wristband ID Blood Bank Comment 07/03/24 07/03/24 07/03/24 08:35 09:00 09:04 WBC 59.8 H* D RBC 1.57 L* Hgb 5.3 L* D Hct 16.9 L* MCV 108 H MCH 33.8 MCHC 31.4 RDW Std Deviation 62.0 H Plt Count 34 L D Neut % (Auto) 69 Lymph % (Auto) 7 L Bailey % (Auto) 14 H Eos % (Auto) 0 Baso % (Auto) 0 Neut # (Auto) 41.0 H Lymph # (Auto) 4.0 Bailey # (Auto) 8.3 H Eos # (Auto) 0.1 Baso # (Auto) 0.1 Immature Gran # (Auto) 6.35 H Absolute Nucleated RBC 0.99 H Immature Gran % 11 H Neutrophils % (Manual) Monocytes % (Manual) Metamyelocytes % Myelocytes % Nucleated RBC % 2 H Band Neutrophils Lymphocytes (Manual) Toxic Granulation Toxic Vacuolation Smear Path Review Cancelled PT > 63.0 H* D INR APTT > 139.0 H* D Fibrinogen < 50 L* D-Dimer Puncture Site Arterial Line ABG pH 6.84 L* D ABG pCO2 67 H D ABG pO2 184 H D ABG HCO3 11 L ABG O2 Saturation 99 H ABG Base Excess -20 L VBG pH VBG pCO2 VBG pO2 VBG O2 Sat (David) VBG Base Excess Oxygen Liter Flow FiO2 100 Sodium 144 Potassium 5.0 Chloride 103 Carbon Dioxide 12.8 L* Anion Gap 28 H BUN 48 H Creatinine 3.2 H Estim Creat Clear Calc 19.2 L eGFR 20 L BUN/Creatinine Ratio 15 Glucose 161 H D Calculated Osmolality 302 H Lactic Acid Cancelled Calcium Corrected Calcium Phosphorus Magnesium Total Bilirubin Direct Bilirubin AST ALT Alkaline Phosphatase Total Protein Albumin Globulin Albumin/Globulin Ratio Triglycerides Cholesterol LDL Cholesterol, Calc HDL Cholesterol Cholesterol/HDL Ratio Peritoneal Color Yellow Peritoneal Appearance Hazy Peritoneal WBC 156 Peritoneal [place] [id number] Periton Polynucl WBCs 24 Periton Mononucl WBCs 76 Random Vancomycin Hepatitis A IgM Ab Hep Bs Antigen Hep B Core IgM Ab Hepatitis C Antibody Misc Test Result Blood Type Antibody Screen Crossmatch Blood Bank Wristband ID Blood Bank Comment 07/03/24 07/03/24 07/03/24 09:04 10:41 10:45 WBC 71.3 H* D RBC 1.78 L* Hgb 6.0 L* Hct 18.3 L* MCV 103 H MCH 33.7 MCHC 32.8 RDW Std Deviation 58.1 H Plt Count 38 L Neut % (Auto) 69 Lymph % (Auto) 6 L Bailey % (Auto) 13 H Eos % (Auto) 0 Baso % (Auto) 0 Neut # (Auto) 49.3 H Lymph # (Auto) 4.2 Bailey # (Auto) 9.3 H Eos # (Auto) 0.1 Baso # (Auto) 0.2 Immature Gran # (Auto) 8.13 H Absolute Nucleated RBC 1.02 H Immature Gran % 11 H Neutrophils % (Manual) Monocytes % (Manual) Metamyelocytes % Myelocytes % Nucleated RBC % 1 H Band Neutrophils Lymphocytes (Manual) Toxic Granulation Toxic Vacuolation Smear Path Review Cancelled PT 36.5 H* D INR 3.7 H APTT > 139.0 H* Fibrinogen 58 L* D-Dimer 3600 H Puncture Site Left Femoral ABG pH 7.11 L* D ABG pCO2 40 D ABG pO2 62 L D ABG HCO3 13 L ABG O2 Saturation 84 L ABG Base Excess -15 L VBG pH VBG pCO2 VBG pO2 VBG O2 Sat (David) VBG Base Excess Oxygen Liter Flow FiO2 80 Sodium Potassium Chloride Carbon Dioxide Anion Gap BUN Creatinine Estim Creat Clear Calc eGFR BUN/Creatinine Ratio Glucose Calculated Osmolality Lactic Acid 22.0 H* Calcium 9.8 D Corrected Calcium 11.5 H D Phosphorus Magnesium Total Bilirubin 7.4 H D Direct Bilirubin AST 563 H* ALT 300 H Alkaline Phosphatase 318 H D Total Protein 3.4 L Albumin 1.9 L D Globulin 1.5 L Albumin/Globulin Ratio 1.3 Triglycerides Cholesterol LDL Cholesterol, Calc HDL Cholesterol Cholesterol/HDL Ratio Peritoneal Color Peritoneal Appearance Peritoneal WBC Peritoneal RBC Periton Polynucl WBCs Periton Mononucl WBCs Random Vancomycin Hepatitis A IgM Ab Hep Bs Antigen Hep B Core IgM Ab Hepatitis C Antibody Misc Test Result Platelets confirmed Platelets confirmed Blood Type Antibody Screen Crossmatch Blood Bank Wristband ID Blood Bank Comment 07/03/24 07/03/24 07/03/24 11:00 12:55 13:57 WBC 75.0 H* RBC 2.54 L Hgb 8.2 L D Hct 24.3 L MCV 96 MCH 32.3 MCHC 33.7 RDW Std Deviation 59.8 H Plt Count 64 L D Neut % (Auto) 71 Lymph % (Auto) 7 L Bailey % (Auto) 10 Eos % (Auto) 0 Baso % (Auto) 0 Neut # (Auto) 53.5 H Lymph # (Auto) 5.0 H Bailey # (Auto) 7.3 H Eos # (Auto) 0.2 Baso # (Auto) 0.3 H Immature Gran # (Auto) 8.74 H Absolute Nucleated RBC 1.57 H Immature Gran % 12 H Neutrophils % (Manual) Monocytes % (Manual) Metamyelocytes % Myelocytes % Nucleated RBC % 2 H Band Neutrophils Lymphocytes (Manual) Toxic Granulation Toxic Vacuolation Smear Path Review Cancelled PT 29.1 H D INR 2.9 H APTT > 139.0 H* Fibrinogen 68 L* D-Dimer > 3820 H Puncture Site ABG pH ABG pCO2 ABG pO2 ABG HCO3 ABG O2 Saturation ABG Base Excess VBG pH VBG pCO2 VBG pO2 VBG O2 Sat (David) VBG Base Excess Oxygen Liter Flow FiO2 Sodium 140 140 139 Potassium 4.1 D 3.6 D 3.7 Chloride 100 102 100 Carbon Dioxide 13.8 L* 11.8 L* 14.1 L* Anion Gap 26 H 26 H 25 H BUN 35 H 29 H 27 H Creatinine 2.2 H D 1.8 H 1.7 H Estim Creat Clear Calc 28.0 L 34.2 L 36.2 L eGFR 31 L 39 L 42 L BUN/Creatinine Ratio 16 16 16 Glucose 81 D 111 H 66 L Calculated Osmolality 286 286 280 Lactic Acid 18.0 H* Calcium 8.1 L D 7.1 L 7.4 L Corrected Calcium 9.0 D 8.1 L 8.0 L Phosphorus 4.5 Magnesium Total Bilirubin 9.9 H D 10.3 H Direct Bilirubin AST 1066 H* 1827 H* ALT 459 H 621 H* Alkaline Phosphatase 375 H D 331 H D Total Protein 4.9 L 5.1 L Albumin 2.9 L D 2.8 L 3.2 L Globulin 2.0 L 1.9 L Albumin/Globulin Ratio 1.5 1.7 Triglycerides Cholesterol LDL Cholesterol, Calc HDL Cholesterol Cholesterol/HDL Ratio Peritoneal Color Peritoneal Appearance Peritoneal WBC Peritoneal RBC Periton Polynucl WBCs Periton Mononucl WBCs Random Vancomycin Hepatitis A IgM Ab Hep Bs Antigen Hep B Core IgM Ab Hepatitis C Antibody Misc Test Result Blood Type Antibody Screen Crossmatch Blood Bank Wristband ID Blood Bank Comment Assessment & Plan Additional Assessment Additional Assessment: In summary this is a 74yo M admitted for refractory septic shock and severe acidosis a/p [employer] O[employer]ATOR Acute encephalopathy- multifactorial and 2/2 sepsis, shock, acidosis, hypoglycemia CV Shock- refractory shock and on 3 vasopressors. CI ~3.2, SVR 880 on 3 pressors, PPV 2 , CVP 18- 22, bedside echo shows hyperdynamic LV, SVO2 checked and found to be elevated, pts parameters suggest distributive shock 2/2 sepsis and liver failure. started on hydrocortisone 50mg IV q6, on vanc/zosyn, cx pending, s/p paracentesis with cx and gram stain sent. on 3mcg/kg/min levo, vaso 0.03, epi 0.2mcg/kg/min, methylene blue ordered. formal echo ordered and results pending Resp Acute resp failure- intubated, on MV, fu with ABG, attempt to increase Ve in order compensate for acidosis, CXR noted PNA- on abx, cx sent Renal AGMA- 2/2 LA along with a respiratory acidosis component, delta delta gap shows pure metabolic acidosis MAHNAZ - currently on CRRT, likely due to sepsis and poss septic ATN however hepatorenal also a possibility. nephrology recs appreciated GI Cirrhosis- started on lactulose, decompensated , TBr elevated D>I, albumin level low and coagulopathy due to liver dysfunction GI proph- PPI Cholelithiasis- not a candidate for surgical intervention at this time, not clear that has definite cholecystitis Ischemic hepatitis- 2/2 profound shock Endo Hypoglycemia- on D10 drip with persistent hypoglycemia therefore [id number] ordered Heme Leukocytosis- severe and peaked at 97k , likely leukamoid reaction at this point in time Anemia- pt had drop from 10 to 5.3, unclear source of bleed, pt did get several rounds of albumin however drop not felt to be just dilutional in nature. pt to unstable for scan. transfuse PRBCs as needed Thrombocytopenia- present on arrival and due to cirrhosis however new drop from sepsis and DIC Coagulopathy- initially due to cirrhosis and now with superimposed DIC DIC- FFP, cryo as needed ID Severe sepsis- bcx, Ucx, sputum cx sent. ? cholecystitis however pt not a candidate for intervention. on broad spectrum abx d/w ICU team, nephrology, family at bedside labs, imaging, records reviewed ~155ccmin required for eval, exam, review, intervention, discussion and formulation of POC for this critically ill pt with refractory shock at high risk for further and ongoing decompensation. At this time pt appears unlikely to survive this hospital stay. Provider Notation Provider Notation: Although this document has been carefully reviewed, there may still be some phonetic and other typographical errors. These errors are purely grammatical due to imperfections in the software program and should not be construed in any way to compromise the substance of the patient's medical care during this visit. Thank you for the opportunity and privilege in assisting you with this patient's care and management.
[2024-07-03 15:41] LABS: Albumin, Peritoneal Fluid < 1.0 gm/dL; Amylase,Peritoneal Fluid < 20 IU/L; Glucose,Peritoneal Fluid 76 mg/dL; LDH,Peritoneal Fluid 165 IU/L; Protein Total,Peritoneal Fluid 3 g/dL
--- NOTE | 2024-07-03 15:47 | PC.NURSE ---
3rd unit PRBC started.
[2024-07-03] MEDS: DEXMEDETOMIDINE 200 MCG IVPB 200 MCG/50 ML BOTTLE 15.04 MCG IV ×2 (15:58→19:22)
--- NOTE | 2024-07-03 16:12 | PD.INTPROC ---
Procedures Procedure Date / Time 07/03/24 1612 Arterial Line Indication(s): frequent arterial line sampling, shock and inability to monitor non-invasive BP Informed consent obtained: procedure done urgently Time out done, and the following verified: correct patient, procedure and patient position Technique used: guide wire technique Post-Procedure: line sutured into place and dry sterile dressing placed Patient tolerated procedure: well EBL(ml): 10 Complications: excessive bleeding Site: left and femoral Central Line Placement Right Femoral: Indication(s): shock and poor, or inadequate peripheral venous access Informed consent obtained: obtained from surrogate decision maker Time out done, and the following verified: correct patient, side and site and procedure Patient placed on monitor/pulse ox: Yes Hand Hygiene: alcohol-based hand rub Max Sterile Barrier Techniques used: cap, mask, sterile gown, sterile gloves and sterile full body drape Central line prep: Chlorhexidine scrub and sterile drapes applied Ultrasound used for placement: Yes Sterile Technique if Ultrasound used, including sterile gel: yes Central line lumen inserted: triple Post procedure: sutured in place, good blood return, all ports aspirated, flushed, capped and sterile dressing applied Patient tolerated procedure: well Complications: hematoma at puncture site Intubation Indication(s): acute Resp Failure Informed consent obtained: obtained from surrogate decision maker Time out done, and the following verified: correct patient, side and site and procedure Sedative: ketamine Mg given: 100 Paralytic: rocuronium Mg given: 50 Laryngoscope: fiber optic video scope ET tube size: 7.5 ET tube uncuffed: No Tube secured depth (cm): 23 Tube secured location: teeth Tube placement confirmation: visualized tube passing through cords, equal breath sounds bilaterally, no breath sounds over epigastrium and confirmation by capnometry Patient tolerated procedure: well and no complications Intubation complications: none Paracentesis Indication: Ascites Informed consent obtained: obtained from surrogate decision maker Time out done, and the following verified: correct patient, side and site, procedure and patient position Procedure: therapeutic paracentesis Location: LLQ Local anesthetic used: lidocaine 1% Amount of anesthesia used (mL): 5 Bedside ultrasound used: yes, real-time guidance Preparation: sterile prep and drape Amount of fluid obtained (mL): 2,400 Fluid: bloody and sent to lab for analysis (dark yoni in color) Patient tolerated procedure: well and no complications Complications: none
--- NOTE | 2024-07-03 16:24 | PC.SS ---
Update: Patient is receiving dialysis via Tablo machine. Duration of dialysis is for 10 hours today. Patient is intubated, not sedated. Patient is NPO. Patient is afrebile.
--- NOTE | 2024-07-03 16:25 | PC.NURSE ---
3rd unit PRBC finished, 4th unit PRBC started.
--- NOTE | 2024-07-03 16:33 | ECHO_ITS ---
Transthoracic Echo Report Ht (in): 67 Wt (lb): 165 Exam Location: Portable Status: Inpatient Stone Finisher: REGINE Villalobos^^^^ Indications: Procedure Performed: BP: 84 / 46 HR: 110 Rhythm: Other Technical Quality: Technically difficult study MEASUREMENTS (Male / Female) Normal Values 2D ECHO LV Diastolic Diameter PLAX 3.9 cm 4.2 - 5.9 / 3.9 - 5.3 cm LV Systolic Diameter PLAX 2.7 cm IVS Diastolic Thickness 0.7 cm 0.6 - 1.0 / 0.6 - 0.9 cm LVPW Diastolic Thickness 0.8 cm 0.6 - 1.0 / 0.6 - 0.9 cm LV Relative Wall Thickness 0.4 LVOT Diameter 1.4 cm Aortic Root Diameter 4.1 cm LA Systolic Diameter LX 3.8 cm 3.0 - 4.0 / 2.7 - 3.8 cm Ascending Aorta Diameter 3.2 cm DOPPLER AV Peak Velocity 131.0 cm/s AV Peak Gradient 6.9 mmHg AV Mean Gradient 5.0 mmHg AV Velocity Time Integral 20.6 cm LVOT Peak Velocity 103.0 cm/s LVOT Peak Gradient 4.2 mmHg LVOT Velocity Time Integral 18.6 cm LVOT Cardiac Index 1663.5 cm?/min?m? AV Area Cont Eq vti 1.4 cm? AV Area Cont Eq pk 1.2 cm? MV Area PHT 3.1 cm? MR Peak Velocity 242.0 cm/s MR Peak Gradient 23.4 mmHg Mitral E Point Velocity 58.7 cm/s Mitral A Point Velocity 73.2 cm/s Mitral E to A Ratio 0.8 LV E' Lateral Velocity 10.2 cm/s Mitral E to LV E' Lateral Ratio 5.8 LV E' Septal Velocity 6.9 cm/s Mitral E to LV E' Septal Ratio 8.5 TR Peak Velocity 277.0 cm/s TR Peak Gradient 30.7 mmHg PV Peak Velocity 95.0 cm/s PV Peak Gradient 3.6 mmHg RVOT Peak Velocity 63.5 cm/s FINDINGS Left Ventricle Normal left ventricular size, wall thickness, systolic function with no obvious regional wall motion abnormalities. There is grade I diastolic dysfunction of the left ventricle (impaired relaxation pattern). The left ventricular ejection fraction is normal, estimated at 55-60%. Right Ventricle The right ventricle is normal in size and systolic function. The estimated right ventricular systolic pressure, 42 mmHg. Left Atrium The left atrium is normal by two-dimensional, color flow and Doppler imaging with no structural abnormalities, no thrombus formation present. Right Atrium The right atrium is normal by two-dimensional imaging, color flow and Doppler imaging with no structural abnormalities, no thrombus formation present. Atrial Septum The interatrial septum appears normal with no evidence of a shunt. Aorta Mild aortic dilatation at the level of the sinuses of Valsalva. Mitral Valve Mild mitral regurgitation. Mild mitral annular calcification. Aortic Valve Aortic valve sclerosis. Tricuspid Valve There is mild tricuspid valve regurgitation. Pulmonic Valve trivial pulmonic valve regurgitation. Vessels Dilated inferior vena cava. Less than 50% respiratory change in dimension of the inferior vena cava abnormal. Pericardium The pericardium is normal by two-dimensional imaging. There is no significant pericardial effusion. CONCLUSIONS indicatioon: SOB Normal size left vnetricle with normal function with EF 55-60%. Diastolic Dysfunction I present. RV appears normal with RVSP mildly elevated 42 mmHg. Muld mitral regurgitation. Aortic valve sclerosis TV has mild TR. IVC is mildly dilated. Carmina Muller (Electronically Signed) Final Date: 03 July 2024 15:30
[2024-07-03 17:03] LABS: Slide Review Platelets confirmed
[2024-07-03] MEDS: EPINEPHrine Inj 16 MG in SODIUM CHLORIDE 0.9% 250 ML 234 ML 105.248 MG IV (17:30)
[2024-07-03] MEDS: NOREPINEPHRINE INJ 32 MG in SODIUM CHLORIDE 0.9% 500 ML 468 ML 105.248 MG IV (18:00)
[2024-07-03 18:58] LABS: Base Excess -17 (-3-3); HCO3 11 mEq/L (20-26); Inspired Oxygen, FIO2 80 %; O2 Saturation 87 % (91-98); PCO2 33 mmHg (32.0-48.0)
[2024-07-03 19:11] LABS: Allen Test Not Performed; Puncture Site Arterial Line
[2024-07-03 19:12] LABS: PO2 59 mmHg (83-108); pH, Arterial 7.13 (7.35-7.45)
[2024-07-03 19:26] LABS: Basophils # (Auto) 0.2 Thou/mm3 (0.0-0.2); Basophils % (Auto) 0 % (0-2.5); Eosinophils # (Auto) 0.1 Thou/mm3 (0.0-0.5); Eosinophils % (Auto) 0 % (0-10); Hematocrit 28.5 % (41.0-53.0); Hemoglobin 9.4 g/dL (13.5-16.0); Immature Granulocytes % (Auto) 11 % (0-0); Immature Granulocytes Auto 8.14 Thou/mm3 (0.00-0.00); Lymphocytes # (Auto) 4.1 Thou/mm3 (1.0-4.8); Lymphocytes % (Auto) 6 % (10-50); Mean Corpuscular Hemoglobin 31.6 pg (25.0-35.0); Mean Corpuscular Volume 96 fL (80-100); Monocytes % (Auto) 8 % (0-12); Neutrophils # (Auto) 53.9 Thou/mm3 (1.8-7.7); Neutrophils % (Auto) 75 % (37-80); Nucleated Red Blood Cell # 1.16 Thou/mm3 (0.00-0.00); Nucleated Red Blood Cell % 2 /100 WBC (0); RDW Standard Deviation 59.9 fL (35.1-43.9); Red Blood Count 2.97 Miln/mm3 (4.50-5.90)
[2024-07-03 19:41] LABS: D-Dimer 3710 ng/mL (<600)
[2024-07-03 19:55] LABS: Platelet Count 61 Thou/mm3 (140-440)
[2024-07-03 19:56] LABS: White Blood Count 72.4 Thou/mm3 (3.8-10.6)
[2024-07-03 19:57] LABS: Slide Review Platelets confirmed
[2024-07-03 19:59] LABS: Fibrinogen 81 mg/dL (175-375); INR 2.8 (0.9-1.3); Prothrombin Time 28.7 Seconds (9.0-12.2)
[2024-07-03 20:01] LABS: Partial Thromboplastin Time > 139.0 Seconds (22.0-36.0)
[2024-07-03 20:21] LABS: Alanine Aminotransferase 848 U/L (10-49); Albumin, Serum 3.3 gm/dL (3.4-4.8); Albumin/Globulin Ratio 1.7 (1.2-2.2); Alkaline Phosphatase 307 U/L (46-116); Anion Gap 27 (7-16); Aspartate Amino Transferase 2866 U/L (0-34); BUN/Creatinine Ratio 15 Ratio (12-20); Bilirubin,Total 10.5 mg/dL (0.3-1.2); Blood Urea Nitrogen 22 mg/dL (9-23); Calcium 6.9 mg/dL (8.3-10.6); Calcium (Corrected) 7.5 mg/dL (8.5-10.1); Chloride 96 mMol/L (98-107); Creatinine (Component) 1.5 mg/dL (0.6-1.3); Globulin 1.9 gm/dL (2.3-3.5); Glucose 108 mg/dL (74-106); Osmolality,Calculated 274 (275-295); Potassium 3.6 mMol/L (3.4-5.1); Sodium 135 mMol/L (136-145); Total Protein 5.2 gm/dL (5.7-8.2); eGFR 49 See Note
[2024-07-03 20:24] LABS: Carbon Dioxide 12.3 mMol/L (20.0-31.0)
[2024-07-03] MEDS: EPINEPHrine Inj 16 MG in SODIUM CHLORIDE 0.9% 250 ML 234 ML 63.149 MG IV (21:01)
[2024-07-03] MEDS: PIPER/TAZO INJ 4.5 GM in SODIUM CHLORIDE 0.9% (POP) 100 ML IV (21:04)
[2024-07-03] MEDS: fentaNYL 2,500 MCG/250 ML BAG 2,500 MCG/250 ML BAG IV (21:56)
[2024-07-03] MEDS: DEXMEDETOMIDINE 200 MCG IVPB 200 MCG/50 ML BOTTLE 22.56 MCG IV (22:20)
--- NOTE | 2024-07-03 22:45 | PC.NURSE ---
arterial pressure on tablo reading greater than 300, assessed/safety checks performed unable to inprove arterial pressure reading. dialysis had 30 minutes remaining, dialysis stopped and blood returned to pt. Pt tolerated well
[2024-07-03] MEDS: NOREPINEPHRINE INJ 32 MG in SODIUM CHLORIDE 0.9% 500 ML 468 ML 77.1 MG IV (23:40)
[2024-07-03 23:52] LABS: Basophils # (Auto) 0.1 Thou/mm3 (0.0-0.2); Basophils % (Auto) 0 % (0-2.5); Eosinophils # (Auto) 0.1 Thou/mm3 (0.0-0.5); Eosinophils % (Auto) 0 % (0-10); Hematocrit 26.1 % (41.0-53.0); Immature Granulocytes % (Auto) 12 % (0-0); Immature Granulocytes Auto 8.76 Thou/mm3 (0.00-0.00); Lymphocytes # (Auto) 3.9 Thou/mm3 (1.0-4.8); Lymphocytes % (Auto) 5 % (10-50); Mean Corpuscular HGB Conc 33.3 g/dl (31.0-37.0); Mean Corpuscular Hemoglobin 31.6 pg (25.0-35.0); Mean Corpuscular Volume 95 fL (80-100); Monocytes # (Auto) 6.2 Thou/mm3 (0.0-0.8); Monocytes % (Auto) 9 % (0-12); Neutrophils # (Auto) 54.2 Thou/mm3 (1.8-7.7); Neutrophils % (Auto) 74 % (37-80); Nucleated Red Blood Cell # 1.08 Thou/mm3 (0.00-0.00); Nucleated Red Blood Cell % 2 /100 WBC (0); RDW Standard Deviation 62.4 fL (35.1-43.9); Red Blood Count 2.75 Miln/mm3 (4.50-5.90)
[2024-07-03 23:55] LABS: Hemoglobin 8.7 g/dL (13.5-16.0); Platelet Count 45 Thou/mm3 (140-440); White Blood Count 73.3 Thou/mm3 (3.8-10.6)
[2024-07-04] VITALS (96 sets, daily range): BP systolic 48–131; BP diastolic 22–70; PULSE 39–80; RESP 20–35; TEMP 28.1–28.6; O2SAT 20–92; BMI 27.1
[2024-07-04] MEDS: HYDROCORTISONE SOD SUCC INJ 100 MG VIAL 50 MG IV ×2 (00:01→05:15)
[2024-07-04] MEDS: SODIUM BICARB INJ 8.4% 1 mEq/ML VIAL 50 ML 50 MEQ IV ×2 (00:01→03:49)
[2024-07-04 00:02] LABS: D-Dimer 3790 ng/mL (<600)
[2024-07-04 00:03] LABS: Slide Review Platelets confirmed
[2024-07-04 00:05] LABS: Alanine Aminotransferase 932 U/L (10-49); Albumin, Serum 2.6 gm/dL (3.4-4.8); Albumin/Globulin Ratio 1.5 (1.2-2.2); Alkaline Phosphatase 314 U/L (46-116); Anion Gap 27 (7-16); BUN/Creatinine Ratio 15 Ratio (12-20); Bilirubin,Total 10.4 mg/dL (0.3-1.2); Blood Urea Nitrogen 19 mg/dL (9-23); Calcium (Corrected) 7.6 mg/dL (8.5-10.1); Chloride 96 mMol/L (98-107); Creatinine (Component) 1.3 mg/dL (0.6-1.3); Estimated Creatinine Clearance 47.3 mL/min (>60); Globulin 1.7 gm/dL (2.3-3.5); Glucose 114 mg/dL (74-106); Osmolality,Calculated 271 (275-295); Potassium 3.2 mMol/L (3.4-5.1); Sodium 134 mMol/L (136-145); Total Protein 4.3 gm/dL (5.7-8.2); eGFR 58 See Note
[2024-07-04 00:29] LABS: Aspartate Amino Transferase 3313 U/L (0-34)
[2024-07-04 00:30] LABS: Carbon Dioxide 10.6 mMol/L (20.0-31.0)
[2024-07-04 00:31] LABS: Calcium 6.5 mg/dL (8.3-10.6)
[2024-07-04] MEDS: DEXTROSE 50% SYR 187.5 ML in DEXTROSE 10%-WATER 312.5 ML 60 ML IV (00:35)
[2024-07-04] MEDS: DEXMEDETOMIDINE 200 MCG IVPB 200 MCG/50 ML BOTTLE 22.56 MCG IV ×3 (00:42→05:45)
[2024-07-04] MEDS: VASOPRESSIN IN NS IVPB 20 UNIT/100 ML BAG 9 UNIT IV (01:59)
[2024-07-04] MEDS: EPINEPHrine Inj 16 MG in SODIUM CHLORIDE 0.9% 250 ML 234 ML 60.342 MG IV (02:01)
[2024-07-04 02:04] LABS: Fibrinogen 50 mg/dL (175-375)
[2024-07-04 02:05] LABS: Partial Thromboplastin Time > 139.0 Seconds (22.0-36.0)
[2024-07-04] MEDS: CALCIUM GLUC/NS 1000MG IVPB 1,000 MG/50 ML BAG 50 MG IV (02:18)
[2024-07-04 03:33] LABS: Basophils # (Auto) 0.1 Thou/mm3 (0.0-0.2); Basophils % (Auto) 0 % (0-2.5); Eosinophils # (Auto) 0.1 Thou/mm3 (0.0-0.5); Eosinophils % (Auto) 0 % (0-10); Hematocrit 23.2 % (41.0-53.0); Immature Granulocytes % (Auto) 13 % (0-0); Immature Granulocytes Auto 8.08 Thou/mm3 (0.00-0.00); Lymphocytes # (Auto) 4.1 Thou/mm3 (1.0-4.8); Lymphocytes % (Auto) 6 % (10-50); Mean Corpuscular HGB Conc 32.8 g/dl (31.0-37.0); Mean Corpuscular Hemoglobin 32.2 pg (25.0-35.0); Mean Corpuscular Volume 98 fL (80-100); Monocytes # (Auto) 4.9 Thou/mm3 (0.0-0.8); Monocytes % (Auto) 8 % (0-12); Neutrophils # (Auto) 47.5 Thou/mm3 (1.8-7.7); Neutrophils % (Auto) 73 % (37-80); Nucleated Red Blood Cell # 0.81 Thou/mm3 (0.00-0.00); Nucleated Red Blood Cell % 1 /100 WBC (0); RDW Standard Deviation 65.4 fL (35.1-43.9); Red Blood Count 2.36 Miln/mm3 (4.50-5.90)
[2024-07-04 03:36] LABS: Hemoglobin 7.6 g/dL (13.5-16.0); Platelet Count 34 Thou/mm3 (140-440)
[2024-07-04 03:37] LABS: Slide Review Platelets confirmed; White Blood Count 64.8 Thou/mm3 (3.8-10.6)
[2024-07-04 03:49] LABS: D-Dimer 3420 ng/mL (<600)
[2024-07-04 03:56] LABS: Alanine Aminotransferase 884 U/L (10-49); Albumin, Serum 2.5 gm/dL (3.4-4.8); Albumin/Globulin Ratio 1.6 (1.2-2.2); Alkaline Phosphatase 303 U/L (46-116); Anion Gap 30 (7-16); Aspartate Amino Transferase 3208 U/L (0-34); BUN/Creatinine Ratio 13 Ratio (12-20); Bilirubin,Total 9.5 mg/dL (0.3-1.2); Blood Urea Nitrogen 20 mg/dL (9-23); Calcium (Corrected) 8.2 mg/dL (8.5-10.1); Chloride 96 mMol/L (98-107); Creatinine (Component) 1.6 mg/dL (0.6-1.3); Estimated Creatinine Clearance 38.4 mL/min (>60); Globulin 1.6 gm/dL (2.3-3.5); Glucose 156 mg/dL (74-106); Osmolality,Calculated 277 (275-295); Potassium 3.5 mMol/L (3.4-5.1); Sodium 136 mMol/L (136-145); Total Protein 4.1 gm/dL (5.7-8.2); eGFR 45 See Note
[2024-07-04 03:58] LABS: Carbon Dioxide < 10.0 mMol/L (20.0-31.0)
[2024-07-04 03:59] LABS: Fibrinogen 50 mg/dL (175-375); Partial Thromboplastin Time > 139.0 Seconds (22.0-36.0)
[2024-07-04] MEDS: LACTULOSE SYRUP 20 GM/30 ML UDC 30 GM PO (05:14)
[2024-07-04] MEDS: ALBUMIN HUMAN 25% IVPB 25 GM/100 ML BTL IV ×2 (05:15)
[2024-07-04] MEDS: PIPER/TAZO INJ 4.5 GM in SODIUM CHLORIDE 0.9% (POP) 100 ML IV (05:16)
[2024-07-04] MEDS: EPINEPHrine Inj 16 MG in SODIUM CHLORIDE 0.9% 250 ML 234 ML 84.198 MG IV (06:22)
[2024-07-04] MEDS: NOREPINEPHRINE INJ 32 MG in SODIUM CHLORIDE 0.9% 500 ML 468 ML 126.298 MG IV (06:26)
[2024-07-04] MEDS: ATROPINE SULF INJ 0.1 MG/ML SYR 10 ML 1 MG IV (06:40)
[2024-07-04] MEDS: CALCIUM CHLORIDE 10% INJ 10 ML SYRG IV (06:40)
[2024-07-04] MEDS: Sodium Bicarb Inj 8.4% SYR 50 ML SYRINGE IV (06:40)
[2024-07-04 06:43] LABS: Base Excess -27 (-3-3); HCO3 5 mEq/L (20-26); Inspired Oxygen, FIO2 80 %; O2 Saturation 69 % (91-98); PCO2 28 mmHg (32.0-48.0)
[2024-07-04 06:48] LABS: PO2 49 mmHg (83-108); pH, Arterial 6.83 (7.35-7.45)
[2024-07-04 06:49] LABS: Allen Test Not Performed; Puncture Site Arterial Line
[2024-07-04] MEDS: Sodium Bicarb Inj 8.4% SYR 50 ML SYRINGE 100 ML IV (06:52)
[2024-07-04 07:48] LABS: Alanine Aminotransferase 628 U/L (10-49); Albumin/Globulin Ratio 1.8 (1.2-2.2); Alkaline Phosphatase 236 U/L (46-116); Anion Gap 33 (7-16); BUN/Creatinine Ratio 14 Ratio (12-20); Bilirubin,Total 7.1 mg/dL (0.3-1.2); Blood Urea Nitrogen 19 mg/dL (9-23); Calcium 8.1 mg/dL (8.3-10.6); Calcium (Corrected) 9.7 mg/dL (8.5-10.1); Carbon Dioxide 16.9 mMol/L (20.0-31.0); Chloride 98 mMol/L (98-107); Creatinine (Component) 1.4 mg/dL (0.6-1.3); Estimated Creatinine Clearance 43.9 mL/min (>60); Globulin 1.1 gm/dL (2.3-3.5); Glucose 195 mg/dL (74-106); Magnesium 1.8 mg/dL (1.6-2.6); Osmolality,Calculated 301 (275-295); Phosphorous 6.6 mg/dL (2.4-5.1); Potassium 3.6 mMol/L (3.4-5.1); Sodium 148 mMol/L (136-145); Total Protein 3.1 gm/dL (5.7-8.2); Vancomycin,Random 9.4 mcg/mL; eGFR 53 See Note
[2024-07-04 07:59] LABS: Aspartate Amino Transferase 2305 U/L (0-34)
[2024-07-04 08:37] LABS: Slide Review Platelets confirmed
[2024-07-04] MEDS: SCOPOLAMINE 1 MG TDSY TOP (08:37)
--- NOTE | 2024-07-04 08:44 | PD.RESEVENT ---
Documentation for date of: 07/04/24 Event Note Event Note: The patient remained on Continuous Renal Replacement Therapy overnight, but his condition continued to deteriorate. A repeat arterial blood gas showed a pH of 6.83. Despite being on maximum doses of three pressors, there was no improvement in his clinical status. In the morning, a family meeting was held with the patient?s daughter and son at the bedside. Both the flight controls engineer and food technologist separately discussed the goals of care with the family. The patient?s critical condition, including the worsening multiorgan failure, was explained in detail, along with the anticipated clinical course and next steps. Decision for Comfort Care: After careful consideration and based on the patient?s prior expressed wishes not to pursue aggressive measures, the family decided to transition to comfort care. They chose to discontinue aggressive interventions and allow the patient to pass peacefully. Organ Donation and Transition: The donor center was contacted, but the patient was not eligible for organ donation. Following the patient?s and family?s wishes, care was transitioned to comfort measures. Patient care was discussed with attending physician Dr. Mk Johnson MD PGY-2 I have carefully reviewed this document. Due to imperfections in the voice software, there could be grammatical errors including phonetic/typographic errors. This in no way compromises the medical care the patient is receiving
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
[2024-07-04 10:22] LABS: Reflex Lactate? Y
--- NOTE | 2024-07-04 10:28 | DES_ITS ---
Documentation for date of: 07/04/24 Pronouncement Note Date and Time of Date of : 07/04/24 Time of : 09:18 PCOD Preliminary cause of : Cardiopulmonary arrest Summary Additional details: I was called to pronounce the of the patient Liana Becerra in room 258. Upon my examination, no active heart or breath sounds were noted after 1 continuous minutes of auscultation. The pupils were not responsive to light/touch/external stimuli. Patient was pronounced on 07/04/2024 at 9:18 AM. Attending was notified. The patient's family was present and consoled. Patient care was discussed with attending physician Dr. Mk Johnson MD PGY-2 Additional Data Confirmation of : no pulse, no respirations, no heart sounds and pupils fixed and dilated Family: at bedside Additional persons at bedside: other (nurse) Attending/PCP notified?: Yes Attending physician: Martine Terrazas MD Was code activated?: No Autopsy requested?: No claims examiner notified?: Yes Organ bank notified?: Yes Advance directives: No
--- NOTE | 2024-07-04 10:28 | DES_ITS ---
Documentation for date of: 07/04/24 Summary Date and Time Date of admission: 07/02/24 16:48 Summary Hospital Course: 74-year-old male with past medical history of diabetes on Ozempic, alcoholic cirrhosis presents to ED with chief complaints of generalized weakness. Over the past couple of days patient was experiencing progressive weakness, to the point of being unable to get out of bed. The weakness has worsened over the last 3 days, prompting him to call to EMS for transport to ED for further evaluation. Patient also stated that for the last couple of days he was not hav ing any appetite, he was not eating well, while he was getting his Ozempic shot. On presentation patient was severely hypoxic, hypotensive, hypoglycemic, labs revealed severe electrolyte disbalance with liver and renal failure. MAP was low 40, patient was placed on pressors and was admitted to ICU for shock requiring pressor support and further management. Nephrology was consulted patient underw ent emergent HD in a setting of sever acidosis, renal failure along with electrolyte disbalance. However over the last 2 days patient condition deteriorated significantly. Patient become severely acidotic despite hemodialysis session.Decision was made to start CRRT due to unstable hemodynamics. Patient was maxed out on 3 pressors. Hospital course was complicated with coagulopathy, patient developed DIC, received multiple blood product transfusion, despite all intervention, patient remains severely acidotic. The critical nature of the patient condition, including the worsening multiorgan system failure, was thoroughly explained to the family. Son and the daughter was at bedside. The clinical course and the next steps in the management were discussed in details. A family meeting was held in the morning with patient's daughter and the son. Both the manifest/order organizer print orders and energy assistant separately discussed the goals of care with the family. After careful consideration and based on this patient critical condition and prior he expressed wishes not to pursue aggressive measures, do not resuscitate. The family decided to transition to comfort care. They chose to discontinue aggressive intervention and allow the patient to pass peacefully. Following the patient's and family wishes care was transitioned to comfort measures. At 9:15 AM I was called to pronounce at this. Upon my examination no active heart or breath sounds were noted after 1 continuous minutes of auscultation. The pupils were not responsive to light/touch/external stimuli. Patient was pronounced at [address] Terrazas was notified. The patient's daughter and the son was present and consoled. Patient care was discussed with attending physician Dr. Mk Johnson MD PGY-2 I have carefully reviewed this document. Due to imperfections in the voice software, there could be grammatical errors including phonetic/typographic errors. This in no way compromises the medical care the patient is receiving Attending note: pt seen and examined this morning. He was mottled throughout with agonal breathing on the vent. mult sites were oozing. lung gates were coarse. pts Pplat on the vent was in the mid 40s. CRRT had been on till midnight however AM labs revealed worsening acidosis and pt was maxed out on 3 vasopressors. At this point in time discussion held with family and pt was started on a fentanyl drip and pt was transitioned to withdrawal /comfort care. pt quickly once vasopressors were stopped. pt seen and examined case d/w ICU team and nephrology ~35min for eval, exam, review , discussion and formulation of POC for this terminal pt Additional Data Attending physician: Martine Terrazas Visit Providers Provider Primary care physician: Giancarlo Schwab MD Consults: 07/02/24 20:18 Consult to Nephrology Stat Comment: Consulting Provider: Carmen Patel Discharge Plan Plan Patient Disposition: Prescriptions/Referrals Referrals: Giancarlo Schwab MD [Primary Care Provider] - Patient/Caregiver Discharge Instructions Print Language: Vietnamese Discharge Order Discharge Orders: Discharge (Routine); Ordered 07/04/24 Ordered By: Christin Johnson
--- NOTE | 2024-07-04 11:29 | PC.NURSE ---
0638 pt became severely unstable with HR in the 40's and no BP reading on the monitor. MD Terrazas notified and orders given and carried out. Patient continues to drastically decline, family is at bedside family is aware of patient status and decides to make the patient comfort care. NO full head to toe assessment made.
[2024-07-04 14:14] LABS: Path Review Blood Smear Sent to Pathologist
== END 2024-07-04 11:40 | disposition expired | DRG 871 ==
LOC: SERX 13:53 → SERHOLD 16:51 → S2SX 17:58
PROVIDERS: Student in an Organized Health Care Education/Training Program; Admitting Provider Internal Medicine; Emergency Provider Emergency Medicine; PCP Family Medicine; Visit Provider Internal Medicine
DX: A41.9 Sepsis, unspecified organism (principal); D65 Disseminated intravascular coagulation [defibrination syndrome]; G93.41 Metabolic encephalopathy; R65.21 Severe sepsis with septic shock; J96.01 Acute respiratory failure with hypoxia; J18.9 Pneumonia, unspecified organism; E87.1 Hypo-osmolality and hyponatremia; N17.9 Acute kidney failure, unspecified; D68.9 Coagulation defect, unspecified; K80.10 Calculus of gallbladder with chronic cholecystitis without obstruction; E87.4 Mixed disorder of acid-base balance; D68.4 Acquired coagulation factor deficiency; K70.31 Alcoholic cirrhosis of liver with ascites; K70.40 Alcoholic hepatic failure without coma; E11.649 Type 2 diabetes mellitus with hypoglycemia without coma; E87.5 Hyperkalemia; D63.8 Anemia in other chronic diseases classified elsewhere; I46.8 Cardiac arrest due to other underlying condition; E88.09 Other disorders of plasma-protein metabolism, not elsewhere classified; W19.XXXA Unspecified fall, initial encounter; E87.8 Other disorders of electrolyte and fluid balance, not elsewhere classified; D63.1 Anemia in chronic kidney disease; Z66 Do not resuscitate; Z51.5 Encounter for palliative care; S80.12XA Contusion of left lower leg, initial encounter
CPT/HCPCS: 36415; 36600; 71045; 74176; 76705; 80053; 80061; 80069; 80074; 80202; 81001; 82042; 82140; 82150; 82247; 82248; 82803; 82945; 83605; 83615; 83690; 83735; 83880; 84100; 84145; 84157; 84484; 85007; 85014; 85018; 85025; 85027; 85379; 85384; 85610; 85730; 86850; 86900; 86901; 86923; 86927; 86965; 87040; 87070; 87075; 87077; 87081; 87086; 87186; 87205; 89051; 93005; 93306; 94002; 94003; 94644; 94660; 96361; 96365; 96366; 96367; 96375; 99291; J0171; J0461; J0613; J1643; J1720; J2405; J2470; J2543; J2598; J3010; J3370; J3430; J3490; J7030; J7040; J7050; J7120; P9012; P9016; P9035; P9047; P9060; Q9968; A9270